=== PATIENT | female | born 1975 | race African-American/Black ===

== ENCOUNTER 2019-10-26 06:24 | Emergency (ER) | payer OTHER, SELFPAY ==
--- NOTE | ~2019-10-26 | MR_ITS ---
EXAMINATION: MR lumbar spine wo/w con DATE: 10/26/2019 11:58 INDICATION: Saddle anesthesia. Bilateral leg numbness. Multiple sclerosis. TECHNIQUE: Magnetic resonance imaging (MRI) of the lumbar spine was performed without and with 20 mL MultiHance intravenous contrast. Sequences included sagittal and axial T2-weighted FSE, sagittal T2-w eighted FS FSE, and sagittal and axial T1-weighted FSE. Postcontrast sequences included sagittal and axial T1-weighted FS FSE. COMPARISON: Cervical spine MRI 04/26/2012, thoracic spine MRI 06/20/2012 FINDINGS: Partially visualized are fibroids in uterus. Bone alignment is normal. Vertebral body heigh ts are normal. There is mildly decreased disc height at L3-L4 and moderately decreased disc height at L4-L5. The distal spinal cord signal intensity is normal. The conus medullaris is at L2. The followi ng disc levels are specifically discussed: L1-L2: The disc does not extend beyond the endplate margin. There is mild bilateral facet joint osteo arthritis. There is no neural foraminal stenosis. There is no central canal stenosis. L2-L3: The disc does not extend beyond the endplate margin. There is severe right and moderate left f acet joint osteoarthritis. There is mild right neural foraminal stenosis. There is no central canal s tenosis. L3-L4: The disc is bulging and has an annular fissure. There is severe bilateral facet joint osteoart hritis. There is mild bilateral neural foraminal stenosis. There is mild central canal stenosis. L4-L5: The disc is bulging and has an annular fissure. There is severe bilateral facet joint osteoart hritis. There is moderate bilateral neural foraminal stenosis. There is mild central canal stenosis. L5-S1: The disc is bulging and has an annular fissure. There is mild bilateral facet joint osteoarthr itis. There is mild right and moderate left neural foraminal stenosis. There is mild central canal st enosis. IMPRESSION: 1. Moderate lumbar spondylosis. Reviewed, dictated and finalized at location E.
--- NOTE | ~2019-10-26 | CT_ITS ---
EXAMINATION: CT brain wo con DATE: 10/26/2019 08:15 INDICATION: Leg weakness. Sagittal and a seizure. Multiple sclerosis. TECHNIQUE: Computed tomography (CT) of the head was performed without intravenous contrast. Sagittal and coronal reconstructions were performed. The mA was adjusted according to patient size. Iterative reconstruction technique was employed. The dose-length product was 605.33 mGy-cm. COMPARISON: None FINDINGS: No acute intracranial hemorrhage, acute infarction or abnormal extra axial fluid collection. There is mild scattered white matter hypoattenuation consistent with chronic small vessel ischemic disease. V entricles are normal and symmetric. No mass/mass effect. The orbits, paranasal sinuses and mastoid ai r cells are normal. IMPRESSION: 1. Mild scattered white matter hypoattenuation most likely related to provided history of multiple sc lerosis. No evident acute intracranial process. Reviewed, dictated and finalized at location A. IMPRESSION: 1. Mild scattered white matter hypoattenuation most likely related to provided history of multiple sclerosis. No evident acute intracranial process.
--- NOTE | ~2019-10-26 | XR_ITS ---
XR knee RT min 4V DATE: 10/26/2019 08:43 INDICATION: Knee pain TECHNIQUE: 6 views COMPARISON: None FINDINGS: There is elisa-articular spurring of the patella. There is prominent narrowing of the lateral compartment and elisa-articular spurring. There is minimal elisa-articular spurring of the medial tibial plateau. There is mild lateral subluxation of the femoral-tibial joint. No fracture or dislocation, periosteal reaction or bone destruction. No radiopaque intra-articular l oose body or chondrocalcinosis. Small suprapatellar knee joint effusion is suggested. IMPRESSION: Osteoarthritic changes Small suprapatellar knee joint effusion Reviewed, dictated and finalized at location A.
[2019-10-26 06:28] VITALS: BP 141/92; PULSE 89; RESP 18; TEMP 36.5; O2SAT 100
--- NOTE | 2019-10-26 07:45 | ED.GENADULT ---
HPI - General Adult General Chief complaint: Unspecified Stated complaint: allergic reaction Time Seen by Provider: 10/26/19 07:04 Source: RN notes reviewed History of Present Illness HPI narrative: Patient presents emergency department from home for numbness at the waist. Patient states symptoms began on 10/19/2019. Patient states that she has numbness in the genital region and cannot feel when she is wiping. She states that the numbness then improves and then begins again starting at just proximal to the ankles down to the feet with a burning sensation in the bilateral feet. She denies any fevers or chills abdominal pain nausea vomiting back pain or any other symptoms she denies any back injuries. Patient states she does have a history of multiple sclerosis and is not under any current treatment. She denies any weakness in the upper extremities patient denies any incontinence but states she cannot feel when she is using the restroom. She states she is able to walk but states she cannot feel the bottom of her feet Related Data Allergies Allergy/AdvReac Type Severity Reaction Status Date / Time kiwi Allergy Severe Other Verified 10/26/19 07:54 latex Allergy Mild RASH Verified 10/26/19 07:53 Review of Systems Review of Systems: Narrative: Gen.: Denies fevers or chills ENT: Denies congestion Respiratory: Denies shortness of breath or cough CV: Denies chest pain or palpitations GI: Denies abdominal pain nausea, emesis or diarrhea denies burning, urgency, frequency or hematuria Musculoskeletal: Denies back pain or muscle pain Neuro: See HPI Skin: Denies rash Except as documented, all other systems reviewed and negative [facility] Past Medical History Medical History (Updated 10/26/19 @ 13:12 by Eric Dodge DO) Multiple sclerosis Social History Social History (Updated 10/26/19 @ 07:47 by Eric Dodge DO) Smoking status: Never smoker Gender identity (if verbalized by the patient): Female Exam Narrative: Exam Narrative: APPEARANCE: No acute distress, nontoxic, resting in bed EYES: EOMI HEENT: Normocephalic, atraumatic, OMM RESPIRATORY: No respiratory distress Clear to auscultation bilaterally with no rhonchi wheezing or rales. CARDIOVASCULAR: Regular rate and rhythm without murmurs rubs or gallops. Bilateral dorsalis pedis pulse 2+ ABDOMINAL: Soft, nontender, nondistended, no rebound or guarding Rectal: Good rectal tone MUSCULOSKELETAl: Moves all extremities. No clubbing, cyanosis or edema. NEURO: Awake and alert x 3. Following commands, speech normal, saddle anesthesia present, pinprick sensation intact from the mid thigh down to just proximal of the ankle increased sensation from the ankle dorsally in the bilateral lower extremities SKIN:: Warm, dry. No rashes lesions or abrasions PSYCHIATRIC: Normal affect/mood, Course Course Emergency Course: Patient is able to get up and ambulate to the restroom without difficulty no assistance Patient also stating that she has had some chronic right knee pain for the past several months on exam the knee is nontender to palpation pain with flexion greater than 45 degrees obtain x-ray at this time Discussed with Dr. Mcbride presentation work-up. Discussed MRI results as well as CT results and history of MS. At this time he recommends patient be treated for UTI recommends no acute treatment for multiple sclerosis and states patient is follow-up with him in the office next week Discussed with patient results of workup and diagnosis. Discussed need for follow-up with primary care, proper use of medication, and reasons to return to the emergency department. Patient understands and agrees to current treatment plan Vital Signs Vital signs: Vital Signs Temperature 97.7 F 10/26/19 06:28 Pulse Rate 89 10/26/19 06:28 Respiratory Rate 18 10/26/19 06:28 Blood Pressure 141/92 H 10/26/19 06:28 Pulse Oximetry 100 10/26/19 06:28 Temperature 97.7 F 10/26/19 06:28
[2019-10-26 07:55] VITALS: O2SAT 99
[2019-10-26 08:37] LABS: Basophils Absolute Auto 0.1 K/mm3 (0.0-0.1); Basophils Percent Auto 0.7 % (0.2-1.2); Eosinophils Absolute Auto 0.1 K/mm3 (0-0.3); Eosinophils Percent Auto 1.8 % (0-4.4); Hematocrit 38.9 % (37.0-47.0); Hemoglobin 12.2 g/dL (12.0-15.0); Immature Granulocyte Absolute 0.02 K/mm3 (0.00-0.031); Immature Granulocyte Percent A 0.3 % (0-0.5); Lymphocytes Absolute Auto 1.88 K/mm3 (0.9-3.2); Lymphocytes Percent Auto 24.6 % (18.3-44.2); Mean Corpuscular HGB Conc 31.4 g/dl (32-36); Mean Corpuscular Hemoglobin 27.8 pg (26-34); Mean Corpuscular Volume 88.6 fl (80-100); Mean Platelet Volume 8.5 fl (7.4-10.4); Monocytes Absolute Auto 0.7 K/mm3 (0.1-0.6); Monocytes Percent Auto 9.4 % (2.6-8.5); Neutrophils Absolute Auto 4.8 K/mm3 (1.3-6.7); Neutrophils Percent Auto 63.2 % (45.5-73.1); Platelet Count Result 472 k/mm3 (150-375); Red Blood Count 4.39 M/mm3 (4.2-5.4); Red Cell Distribution Width 16.8 % (11.5-14.5); White Blood Count 7.6 K/mm3 (4.5-10.0)
[2019-10-26 08:42] LABS: Add Urine Microscopic? YES; Appearance Urine Cloudy (Clear); Bacteria Urine 1+ /hpf; Bilirubin Urine Negative (Negative); Color Urine Yellow (Yellow); Glucose Urine UA Negative (Negative); Ketones Urine Negative (Negative); Leukocyte Esterase Ur 2+ LEU/UL (Negative); Mucus Urine Few /lpf; Nitrate Urine Negative (Negative); Protein Urine 2+ mg/dL (Negative); Specific Grav Ur 1.018 (1.001-1.035); Squamous Epithelial Cell Urine Many /hpf (Few); Urobilinogen Urine Negative mg/dL (<2.0)
[2019-10-26 08:47] LABS: INR 0.9; Partial Thromboplastin Time 28.6 SECONDS (22.3-36.8)
[2019-10-26 08:48] LABS: Alanine Aminotransferase 11 U/L (4-35); Albumin Level 4.3 g/dL (3.5-5.1); Alkaline Phosphatase 80 U/L (38-126); Aspartate Amino Transferase 19 U/L (14-36); Bilirubin,Total 0.3 mg/dL (0.2-1.3); Blood Urea Nitrogen 4 mg/dL (7-17); Calcium 9.3 mg/dL (8.4-10.2); Carbon Dioxide 30 mmol/L (22-30); Chloride 104 mmol/L (98-107); Estimated Glomerular Filt Rate > 60; Glucose 93 mg/dL (65-105); Sodium 139 mmol/L (137-145)
[2019-10-26 08:50] LABS: Blood Urine Negative (Negative)
[2019-10-26 10:41] VITALS: BP 147/68; PULSE 83; RESP 16; O2SAT 100
[2019-10-26] MEDS: NITROFURANTOIN MONOHYD MACROCR 100 MG CAP PO (13:16)
[2019-10-26 13:24] VITALS: BP 140/69; PULSE 78; RESP 16; O2SAT 100
== END 2019-10-26 13:26 | disposition home or self-care (01) ==
PROVIDERS: Emergency Provider Emergency Medicine
DX: G35 Multiple sclerosis (principal); N39.0 Urinary tract infection, site not specified; R20.0 Anesthesia of skin
CPT/HCPCS: 36415; 70450; 72158; 73564; 80053; 81001; 85025; 85610; 85730; 87077; 87086; 87088; 87186; 99284; A9270; A9577

== ENCOUNTER 2021-07-17 13:57 | Outpatient (CLI) | payer OTHER, SELFPAY ==
--- NOTE | ~2021-07-17 | US_ITS ---
EXAMINATION: US pelvic complete EXAM DATE: 07/17/2021 14:13 INDICATION: Hypertrophy of uterus TECHNIQUE: Pelvic transabdominal sonogram was performed. There are multiple grayscale and Doppler i mages available for interpretation. There is no prior study for comparison. FINDINGS: Uterus measures 14.8 x 9.7 x 9.7 cm, with multiple fibroids, largest measuring 8 cm. Endom etrial stripe measures 6 mm, within normal limits. There is no free pelvic fluid. Right adnexa: The ovary is not identified. There is no adnexal mass. Left adnexa: The ovary is not identified. There is no adnexal mass. IMPRESSION: Fibroid uterus. Reviewed, dictated and finalized at location B. ETIC TECHNICIAN IMPRESSION: Fibroid uterus.
== END 2021-07-17 13:58 ==
LOC: MICIMG 13:58
PROVIDERS: PCP Nurse Practitioner Family; Visit Provider Nurse Practitioner
DX: N85.2 Hypertrophy of uterus (principal); D25.9 Leiomyoma of uterus, unspecified
CPT/HCPCS: 76856

== ENCOUNTER → 2021-07-31 02:31 | Outpatient (CLI) | payer OTHER, SELFPAY ==
[2021-07-31 14:34] LABS: SARS-CoV-2 RNA PCR Negative
== END ==
PROVIDERS: PCP Nurse Practitioner Family; Visit Provider Obstetrics & Gynecology Gynecology
DX: Z01.812 Encounter for preprocedural laboratory examination (principal); Z20.822 Contact with and (suspected) exposure to COVID-19
CPT/HCPCS: C9803; U0003; U0005

== ENCOUNTER 2021-07-31 09:45 | Outpatient (CLI) | payer OTHER, SELFPAY ==
[2021-07-31 10:38] LABS: Hematocrit 33.1 % (37.0-47.0); Hemoglobin 9.7 g/dL (12.0-15.0)
== END 2021-07-31 09:46 | disposition home or self-care (01) ==
PROVIDERS: Anesthesiology; PCP Nurse Practitioner Family; Visit Provider Obstetrics & Gynecology Gynecology
DX: D64.9 Anemia, unspecified (principal); Z01.818 Encounter for other preprocedural examination
CPT/HCPCS: 36415; 85014; 85018

== ENCOUNTER 2021-08-03 01:48 | Day surgery (SDC) | payer OTHER, SELFPAY ==
[2021-07-28 15:10] VITALS: BMI 41.3
--- NOTE | 2021-07-28 15:19 | PC.NURSE ---
Report to the Outpatient Waiting Room, entrance under the green pavilion located off [facility], at time 9:00 on date 08/03/21. OR Time: 11:00. - You and your visitor will be asked a series of questions to screen for COVID 19 for your protection. - A mask is required within the hospital. One visitor will be allowed to accompany the patient into the hospital. Patients visitor will be instructed to remain with patient at all times or leave the building. We will allow the visitor to come back to the postoperative area when patient is ready. Preoperative COVID Testing Requirements: COVID TEST 07/31 AT 9:40 No COVID Test needed if: (proof is required; if not received patient will have Rapid Test prior to entry) - Patient has received COVID Vaccine at least 14 days prior to procedure date or - Patient has positive COVID test result within last 90 days of surgery date. COVID Test needed if above criteria is not met If not COVID vaccinated a COVID test must be conducted within 72 hours of surgery and patient is asked to isolate self from time of testing until procedure. You will go to the [facility] for your COVID testing. The [facility] site is located at the corner of [address] [facility]. You will only be called if COVID results are positive and your surgeon may reschedule your elective surgery date. Patients may have clear liquids (water, carbonated beverages, clear teas, apple juice) until 3 hours prior to surgery (8:00) with a maximum of 20 ounces. - No food from midnight until time of surgery Take the following medications with a SIP of water the morning of surgery: NONE Medications to discontinue per physician: VITAMINS/SUPPLEMENTS Date to take last dose: 07/30/21 Please no make-up, nail finnish, hairspray, perfume, deodorant, or body powder the day of surgery. No jewelry (including any body piercings) or valuables the day of surgery, leave them at home. Please take a shower or bath the night before, or the morning of, surgery with an antibacterial soap. Wear comfortable, loose fitting clothing. - Jewelry must be removed prior to entering the operating room. Rings and piercings that are not removed may be cut off. - The hospital will not accept responsibility for valuables. - Please leave all valuables, including medications, at home the day of surgery. If you are going home after surgery, a licensed ross carrier driver must drive you home. - NO public transportation without another adult. - We recommend that an adult stay with you for 24 hours following discharge. - We also recommend that you do not drive, make important decision, drink alcoholic beverages, or take any drugs that were not prescribed by your health care provider for at least 24 hours after your discharge time. Follow any additional instructions given to you from your surgeon. Telephone instructions given to MIRANDA ARCE and asked if any additional questions and then verbalized understanding. Patient advised to call surgeon office or pre surgery nurse liaison [phone] if any additional questions.
[2021-08-03 07:15] VITALS: BP 137/94; PULSE 101; RESP 16; TEMP 36.8; O2SAT 99
[2021-08-03] MEDS: ACETAMINOPHEN 500 MG TABLET 1000 MG PO (07:37)
--- NOTE | 2021-08-03 07:38 | WPDHPUPDATE1 ---
History and Physical Update Update Date/Time: 08/03/21 07:38 History and Physical has been reviewed, including an updated exam of the patient. There are NO changes in the patient's condition. Risks, benefits, and alternatives have been discussed and questions answered. Patient agrees to proceed with procedure.
--- NOTE | 2021-08-03 07:38 | PM.HPGS ---
History of Present Illness History of Present Illness Consent: Risks, benefits, and alternatives have been discussed and questions answered. Patient agrees to proceed with procedure. Chief complaint: Menorrhagia, Fibroids Narrative: Josh Carrasco is a 45 year old female with the onset of approximately 6 months of heavy cycles lasting for 7 days with changing her pad and tampon approximately every 20minutes. Hemoglobin showed anemia at 9.7. Pelvic ultrasound reveals an enlarged uterus with multiple fibroids. Uterus measures 10.8x9.7x9.7 with at least 1 large 8cm fibroid however multiple smaller fibroids. It was recommended to proceed with D&C hysteroscopy and possible MyoSure. Risks of infection, bleeding, perforation, and fluid imbalance were reviewed. Patient voiced understanding and agrees to proceed. Possible pathology was also discussed. Review of Systems Review of Systems: not repeated day of surgery; patient states no changes in status PMFSH Past Medical History Medical History (Updated 08/03/21 @ 07:42 by Allison Lopez MD) Depression Multiple sclerosis (normal spontaneous vaginal delivery) X2 Osteoarthritis of right knee Surgical History Surgical History (Updated 08/03/21 @ 07:41 by Allison Lopez MD) H/O bilateral breast reduction surgery History of cholecystectomy Open fracture of ulna ORIF 2019 Status post tubal ligation Social History Social History Smoking status: Never smoker Alcohol intake: never Substance use: never Substance use type: does not use Living arrangements: with family Additional living arrangements comments: , 2 sons 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, 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 Gender identity (if verbalized by the patient): Female Spiritual care concerns: No Meds Home Medications and Allergies Home Medications Medication Instructions Recorded Confirmed Type ergocalciferol (vitamin D2) 1,250 mcg PO WEEKLY 07/28/21 08/03/21 History ferrous sulfate [Iron (ferrous 325 mg PO BID 07/28/21 08/03/21 History sulfate)] Allergies Allergy/AdvReac Type Severity Reaction Status Date / Time kiwi Allergy Severe Anaphylaxis Verified 08/03/21 07:26 latex Allergy Mild RASH Verified 08/03/21 07:26 Exam Const: General: healthy appearing and alert Orientation/consciousness: patient oriented x3 Resp: Effort & Inspection: normal respiratory effort Auscultation: clear to auscultation bilaterally Cardio: Rate: regular rate Rhythm: regular rhythm GI: GI Palp: Yes Soft to palpation, No Tenderness to palpation present (GI) and No Palpable mass present : External Female Exam: normal external appearance Speculum Exam - Vagina: normal appearance of the vagina and normal vaginal discharge Speculum Exam - Cervix: normal appearance of the cervix Bimanual exam- vagina & uterus: enlarged (Proximally 14 to 16 weeks and firm) Bimanual Exam- Adnexa, other: normal adnexae and No adnexal tenderness Neuro: General: patient oriented x3 Assessment and Plan Assessment and plan (1) Menorrhagia: Code(s): N92.0 - Excessive and frequent menstruation with regular cycle Status: Acute Assessment and Plan: Plan is to proceed with D&C hysteroscopy with possible MyoSure (2) Fibroids: Code(s): D21.9 - Benign neoplasm of connective and other soft tissue, unspecified Status: Acute
[2021-08-03] MEDS: LACTATED RINGERS 1,000 ML 30 ML IV CONT (07:47)
--- NOTE | 2021-08-03 07:52 | P.PNAN_ITS ---
Anes - Initial Pre Proc Eval Procedure: Operation Date: 08/03/21 09:00 Proposed Procedures p Hysteroscopy Dilation and Curettage, Possible Myosure - Allison Lopez MD Date/Time: 08/03/21 07:52 Surgeon: Allison Lopez MD Pre Op Diagnosis: Menorrhagia, Fibroids Patient Data Age: 45 Gender: F Height: 1.75 m Weight: 126.9 kg Last Vital Signs Temp 36.8 C 08/03/21 07:15 Pulse 101 H 08/03/21 07:15 Resp 16 08/03/21 07:15 BP 137/94 H 08/03/21 07:15 Pulse Ox 99 08/03/21 07:15 Allergies Allergy/AdvReac Type Severity Reaction Status Date / Time kiwi Allergy Severe Anaphylaxis Verified 08/03/21 07:26 latex Allergy Mild RASH Verified 08/03/21 07:26 Home Medications Medication Instructions Recorded Confirmed Type ergocalciferol (vitamin D2) 1,250 mcg PO WEEKLY 07/28/21 08/03/21 History ferrous sulfate [Iron (ferrous 325 mg PO BID 07/28/21 08/03/21 History sulfate)] Patient hx anesthesia problems: none and other (motion sickness) Family hx anesthesia problems: none Results Review: All pre-operative results and documents have been reviewed as part of the pre-operative evaluation. 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 Informed Consent: The patient's anesthetic plan and its attendant risks and benefits were discussed with the patient/family/POA. Questions were solicited and answers provided to the satisfaction of the patient/family/POA.
[2021-08-03] MEDS: SCOPOLAMINE 1.5 MG PATCH TRANSDERM (07:57)
--- NOTE | 2021-08-03 09:12 | SUR.OPER ---
FLUID DEFICIT OF APPROXIMATELY 1500ML NOTED. DR CARDENAS AWARE OF DEFICIT
--- NOTE | 2021-08-03 09:13 | W.PM.PROC2 ---
Procedure Note - Detailed Date of Procedure 08/03/21 Pre-op Diagnosis Menorrhagia, Fibroids Post-op Diagnosis same Procedure Performed D&C hysteroscopy Surgeon Allison Lopez MD Anesthesia MAC and local Findings Uterus sounds to 12cm. There was a very large blood clot in the cavity. Endometrium appears grossly normal. Description of Procedure The patient was taken to the operating room and placed under anesthesia in the dorsal lithotomy position. The patient is prepped and draped in usual sterile fashion. The bivalve speculum was placed in the vagina and the cervix grasped with a tenaculum. The cervix is injected in each quadrant with 1% lidocaine. The uterus is sounded to 12cm and noted to be anteverted and very deep set. The cervix is serially dilated with Hegar to an 8. The diagnostic hysteroscope was placed and there was very poor visualization due to large blood clot filling the cavity. The cavity was attempted to be flushed and suctioned and this was not successful. 1L of fluid was used with very minimal return at this point. The hysteroscope was removed and the polyp forceps are used to remove the blood clot in pieces. The hysteroscope was replaced and the cavity is able to be visualized. No abnormalities were noted and the hysteroscope was removed. At this point a 1500cc deficit was noted despite only looking with the hysteroscope. The hysteroscope was removed and the medium sharp curette used to curette the endometrium until a good uterine cry was noted in all areas. All instruments were removed and the patient was awakened from anesthesia and taken to recovery in stable condition. Sponge, needle, and instrument counts are correct per the OR staff. Estimated Blood Loss 25 Drains No Packing No Pathology yes (Endometrial curettings) Complications Other complications (Fluid imbalance) Condition stable Disposition PACU
[2021-08-03 09:19] VITALS: BP 128/91; PULSE 100; RESP 16; O2SAT 94
[2021-08-03 09:49] VITALS: BP 140/77; PULSE 90; RESP 16; O2SAT 100
[2021-08-03 10:07] LABS: Anion Gap 7 mmol/L (8-16); Blood Urea Nitrogen 11 mg/dL (7-17); Calcium 8.5 mg/dL (8.4-10.2); Carbon Dioxide 23 mmol/L (22-30); Chloride 109 mmol/L (98-107); Estimated CRCL calculation 144 ml/min; Estimated Glomerular Filt Rate > 60; Glucose 95 mg/dL (65-110); Potassium 4.4 mmol/L (3.4-5.0); Sodium 139 mmol/L (137-145)
[2021-08-03 10:19] VITALS: BP 135/76; PULSE 88; RESP 16
[2021-08-03 10:49] VITALS: BP 132/72; PULSE 85; RESP 16
== END 2021-08-03 11:00 | disposition home or self-care (01) ==
PROVIDERS: PCP Nurse Practitioner Family; Visit Provider Obstetrics & Gynecology Gynecology
PROC: 0U5B8ZZ Destruction of Endometrium, Via Natural or Artificial Opening Endoscopic (ICD-10-PCS; CPT 58563; principal; 2021-08-03 09:00)
DX: N92.0 Excessive and frequent menstruation with regular cycle (principal); N84.0 Polyp of corpus uteri; F32.9 Major depressive disorder, single episode, unspecified; G35 Multiple sclerosis; M17.11 Unilateral primary osteoarthritis, right knee; E66.01 Morbid (severe) obesity due to excess calories; Z68.41 Body mass index [BMI] 40.0-44.9, adult; D64.9 Anemia, unspecified
CPT/HCPCS: 58558; 36415; 80048; 85014; 85018; 88305; A9270; C9803; J2250; J2405; J2704; J3010; J7030; J7120; U0003; U0005

== ENCOUNTER → 2021-08-15 00:19 | Outpatient (CLI) | payer OTHER, MEDICAID, SELFPAY ==
[2021-08-15 13:15] LABS: SARS-CoV-2 RNA PCR Negative
== END ==
PROVIDERS: PCP Nurse Practitioner Family; Visit Provider Internal Medicine Gastroenterology
DX: Z01.812 Encounter for preprocedural laboratory examination (principal); Z20.822 Contact with and (suspected) exposure to COVID-19
CPT/HCPCS: C9803; U0003; U0005

== ENCOUNTER 2021-08-19 00:21 | Day surgery (SDC) | payer OTHER, MEDICAID, SELFPAY ==
[2021-08-10 14:41] VITALS: BMI 41.3
--- NOTE | 2021-08-18 17:20 | PM.HPGS ---
History of Present Illness History of Present Illness Consent: Risks, benefits, and alternatives have been discussed and questions answered. Patient agrees to proceed with procedure. Chief complaint: neoplasm screening Narrative: Josh Carrasco is a 45 year old female Referred for colon cancer screening Review of Systems Review of Systems: All systems reviewed & are unremarkable except as noted in HPI and below PMFSH Past Medical History Medical History Depression Multiple sclerosis (normal spontaneous vaginal delivery) X2 Osteoarthritis of right knee Surgical History Surgical History H/O bilateral breast reduction surgery History of cholecystectomy History of D&C Open fracture of ulna ORIF 2019 Status post tubal ligation Social History Social History Smoking status: Never smoker Alcohol intake: never Substance use: never Substance use type: does not use Living arrangements: with family Additional living arrangements comments: , 2 sons 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, 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 Gender identity (if verbalized by the patient): Female Spiritual care concerns: No Meds Home Medications and Allergies Home Medications Medication Instructions Recorded Confirmed Type ergocalciferol (vitamin D2) 1,250 mcg PO WEEKLY 07/28/21 08/19/21 History ferrous sulfate [Iron (ferrous 325 mg PO BID 07/28/21 08/19/21 History sulfate)] Allergies Allergy/AdvReac Type Severity Reaction Status Date / Time kiwi Allergy Severe Anaphylaxis Verified 08/19/21 06:25 latex Allergy Mild RASH Verified 08/19/21 06:25 cat dander Allergy Itching Verified 08/19/21 06:25 Exam Const: General: alert Orientation/consciousness: patient oriented x3 Resp: Auscultation: clear to auscultation bilaterally Cardio: Rhythm: regular rhythm GI: GI Palp: Yes Soft to palpation and No Tenderness to palpation present (GI) Neuro: General: patient oriented x3 Assessment and Plan Assessment and plan (1) Colon cancer screening: Code(s): Z12.11 - Encounter for screening for malignant neoplasm of colon Status: Acute Assessment and Plan: Colonoscopy with possible biopsy or polypectomy or cautery or injection of substances.
[2021-08-19 06:28] VITALS: BP 138/74; PULSE 75; RESP 18; TEMP 36.1; O2SAT 100
[2021-08-19] MEDS: LACTATED RINGERS 1,000 ML 150 ML IV CONT (06:50)
--- NOTE | 2021-08-19 06:53 | WPDANESEPPF ---
Anes - Initial Pre Proc Eval Procedure: Operation Date: 08/19/21 07:30 Proposed Procedures p Screening Colonoscopy - Byron Cardona MD Date/Time: 08/19/21 06:53 Surgeon: Byron Cardona MD Pre Op Diagnosis: neoplasm screening Patient Data Age: 45 Gender: F Height: 1.75 m Weight: 127.4 kg Last Vital Signs Temp 36.1 C L 08/19/21 06:28 Pulse 75 08/19/21 06:28 Resp 18 08/19/21 06:28 BP 138/74 08/19/21 06:28 Pulse Ox 100 08/19/21 06:28 Allergies Allergy/AdvReac Type Severity Reaction Status Date / Time kiwi Allergy Severe Anaphylaxis Verified 08/19/21 06:25 latex Allergy Mild RASH Verified 08/19/21 06:25 cat dander Allergy Itching Verified 08/19/21 06:25 Home Medications Medication Instructions Recorded Confirmed Type ergocalciferol (vitamin D2) 1,250 mcg PO WEEKLY 07/28/21 08/19/21 History ferrous sulfate [Iron (ferrous 325 mg PO BID 07/28/21 08/19/21 History sulfate)] Patient hx anesthesia problems: none Family hx anesthesia problems: none Results Review: All pre-operative results and documents have been reviewed as part of the pre-operative evaluation. [facility] Past Medical History Medical History Depression Multiple sclerosis (normal spontaneous vaginal delivery) X2 Osteoarthritis of right knee Surgical History Surgical History (Updated 08/19/21 @ 06:53 by Seymour Benavides MD) H/O bilateral breast reduction surgery History of cholecystectomy History of D&C Open fracture of ulna ORIF 2019 Status post tubal ligation Social History Social History Smoking status: Never smoker Alcohol intake: never Substance use: never Substance use type: does not use Living arrangements: with family Additional living arrangements comments: , 2 sons 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 Informed Consent: The patient's anesthetic plan and its attendant risks and benefits were discussed with the patient/family/POA. Questions were solicited and answers provided to the satisfaction of the patient/family/POA.
[2021-08-19 07:46] VITALS: BP 126/72; PULSE 89; RESP 22; O2SAT 100
[2021-08-19 07:56] VITALS: BP 139/75; PULSE 78; RESP 16; O2SAT 100
[2021-08-19 08:06] VITALS: BP 143/70; PULSE 80; RESP 25; O2SAT 100
== END 2021-08-19 08:22 | disposition home or self-care (01) ==
PROVIDERS: PCP Nurse Practitioner Family; Visit Provider Internal Medicine Gastroenterology
PROC: 0DJD8ZZ Inspection of Lower Intestinal Tract, Via Natural or Artificial Opening Endoscopic (ICD-10-PCS; CPT 45378; principal; 2021-08-19 07:30)
DX: Z12.11 Encounter for screening for malignant neoplasm of colon (principal); K62.1 Rectal polyp; G35 Multiple sclerosis; E66.01 Morbid (severe) obesity due to excess calories; Z68.41 Body mass index [BMI] 40.0-44.9, adult
CPT/HCPCS: 45380; 88305; C9803; J2704; J7120; U0003; U0005

== ENCOUNTER 2021-10-16 07:58 | Outpatient (CLI) | payer OTHER, SELFPAY ==
[2021-10-16 08:45] LABS: Hematocrit 37.1 % (37.0-47.0); Hemoglobin 11.3 g/dL (12.0-15.0)
== END 2021-10-16 07:59 | disposition home or self-care (01) ==
PROVIDERS: PCP Nurse Practitioner Family; Visit Provider Obstetrics & Gynecology Gynecology
DX: Z01.812 Encounter for preprocedural laboratory examination (principal); D64.9 Anemia, unspecified; N92.0 Excessive and frequent menstruation with regular cycle
CPT/HCPCS: 36415; 85014; 85018; 86850; 86900; 86901

== ENCOUNTER 2021-10-20 14:09 | Observation (INO) | payer OTHER, SELFPAY ==
[2021-10-14 13:27] VITALS: BMI 42.3
--- NOTE | 2021-10-14 13:33 | PC.NURSE ---
Report to the Outpatient Waiting Room, entrance under the green pavilion located off [facility], at time 0800____ on date _10/19/21____. OR Time: __999 . - You and your visitor will be asked a series of questions to screen for COVID 19 for your protection. - Only one visitor is allowed at this time. - The patient visitor is requested to leave or wait in car when not with patient. - A mask is required within the hospital. Patients may have clear liquids (water, carbonated beverages, clear teas, apple juice) until 3 hours prior to surgery with a maximum of 20 ounces. - No food from midnight until time of surgery - Infants may have breast milk until 4 hours before surgery, infant formula 6 hours prior to surgery. - Children will be allowed to drink immediately following surgery. If applicable, please bring a bottle or sippy cup to assist with drinking. Juice, water, soda, and popsicles are readily available. For infants on formula, please bring formula the day of surgery. Pacifiers are allowed. Take the following medications with a SIP of water the morning of surgery: NONE Medications to discontinue per physician IRON Date to take last dose 10/16/21 Please no make-up, nail welsh, hairspray, perfume, deodorant, or body powder the day of surgery. No jewelry (including any body piercings) or valuables the day of surgery, leave them at home. Please take a shower or bath the night before, or the morning of, surgery with an antibacterial soap. Wear comfortable, loose fitting clothing. Children are encouraged to wear pajamas. - Jewelry must be removed prior to entering the operating room. Rings and piercings that are not removed may be cut off. - The hospital will not accept responsibility for valuables. - Please leave all valuables, including medications, at home the day of surgery. If you are going home after surgery, a licensed regional driver must drive you home. - NO public transportation without another adult. - We recommend that an adult stay with you for 24 hours following discharge. - We also recommend that you do not drive, make important decision, drink alcoholic beverages, or take any drugs that were not prescribed by your health care provider for at least 24 hours after your discharge time. For Pediatric surgeries, we recommend two adults accompany the child home (only one inside the building at this time). Follow any additional instructions given to you from your surgeon. If you or anyone in your household have experienced Covid symptoms in the past week, please notify your surgeon or the nurse liaison at the phone number below for possible testing. Telephone instructions given to __PATIENTS and asked if any additional questions and then verbalized understanding. Patient advised to call surgeon office or pre surgery nurse liaison [phone] if any additional questions.
[2021-10-19] VITALS (19 sets, daily range): BP systolic 122–140; BP diastolic 60–80; PULSE 72–96; RESP 12–18; TEMP 36.2–37.5; O2SAT 93–100
--- NOTE | 2021-10-19 07:21 | WPDHPUPDATE1 ---
History and Physical Update Update Date/Time: 10/19/21 07:21 History and Physical has been reviewed, including an updated exam of the patient. There are NO changes in the patient's condition. Risks, benefits, and alternatives have been discussed and questions answered. Patient agrees to proceed with procedure.
--- NOTE | 2021-10-19 07:22 | PM.IMHP ---
H&P: HPI History of Present Illness Date/Time: 10/19/21 07:22 The patient is a 45-year-old 4 para 2 aborted 2 admitted for total abdominal hysterectomy bilateral salpingectomy. Patient has known fibroids and has been anemic with most recent hemoglobin of 9.9 as well as increasing pelvic pressure that is constant. Patient also states she has increased cramping throughout the month. Plan is to proceed with surgical treatment. Risks of infection, bleeding, injury to internal organs (especially bowel, bladder, and ureters), deep vein thrombosis, and general anesthesia. Possible pathology was also discussed. Postop recovery was discussed. Patient voices understanding and agrees to proceed. Patient has received medical clearance from her primary physician Chief Complaint: Symptomatic fibroid uterus Review of Systems Review of Systems: not repeated day of surgery; patient states no changes in status PMFSH Past Medical History Medical History Depression Multiple sclerosis (normal spontaneous vaginal delivery) X2 Osteoarthritis of right knee Surgical History Surgical History H/O bilateral breast reduction surgery History of cholecystectomy History of D&C Open fracture of ulna ORIF 2019 Status post tubal ligation Social History Social History Smoking status: Never smoker Alcohol intake: never Substance use: never Substance use type: does not use Living arrangements: with family Additional living arrangements comments: , 2 sons 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, 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 Gender identity (if verbalized by the patient): Female Spiritual care concerns: No Meds Home Medications and Allergies Home Medications Medication Instructions Recorded Confirmed Type ferrous sulfate [Iron (ferrous 325 mg PO BID 07/28/21 10/14/21 History sulfate)] Allergies Allergy/AdvReac Type Severity Reaction Status Date / Time kiwi Allergy Severe Anaphylaxis Verified 10/14/21 13:26 latex Allergy Mild RASH Verified 10/14/21 13:26 cat dander Allergy Itching Verified 10/14/21 13:26 Exam Const: General: healthy appearing and alert Orientation/consciousness: patient oriented x3 Resp: Effort & Inspection: normal respiratory effort Auscultation: clear to auscultation bilaterally Cardio: Rate: regular rate Rhythm: regular rhythm GI: GI Palp: Yes Soft to palpation, No Tenderness to palpation present (GI) and No Palpable mass present : External Female Exam: normal external appearance Speculum Exam - Vagina: normal appearance of the vagina and normal vaginal discharge Speculum Exam - Cervix: normal appearance of the cervix Bimanual exam- vagina & uterus: enlarged (Sixteen weeks by exam. Fourteen weeks with an 8cm fibroid by ultrasound) Bimanual Exam- Adnexa, other: normal adnexae and No adnexal tenderness Neuro: General: patient oriented x3 Assessment and Plan Assessment and plan (1) Fibroids: Code(s): D21.9 - Benign neoplasm of connective and other soft tissue, unspecified Status: Acute Assessment and Plan: Plan to proceed with total abdominal hysterectomy and bilateral salpingectomy. (2) Menorrhagia: Code(s): N92.0 - Excessive and frequent menstruation with regular cycle Status: Acute
[2021-10-19] MEDS: ACETAMINOPHEN 500 MG TABLET 1000 MG PO (08:31)
--- NOTE | 2021-10-19 09:02 | WPDANESEPPF ---
Anes - Initial Pre Proc Eval Procedure: Operation Date: 10/19/21 10:00 Proposed Procedures p Total Abdominal Hysterectomy with Bilateral Salpingectomy - Allison Lopez MD Date/Time: 10/19/21 09:02 Surgeon: Allison Lopez MD Pre Op Diagnosis: Fibroids Patient Data Age: 45 Gender: F Height: 1.75 m Weight: 130 kg Last Vital Signs Temp 37.1 C 10/19/21 08:55 Pulse 81 10/19/21 08:55 Resp 18 10/19/21 08:55 BP 128/65 10/19/21 08:55 Pulse Ox 94 10/19/21 08:55 Allergies Allergy/AdvReac Type Severity Reaction Status Date / Time kiwi Allergy Severe Anaphylaxis Verified 10/19/21 08:13 latex Allergy Mild RASH Verified 10/19/21 08:13 cat dander Allergy Itching Verified 10/19/21 08:13 Home Medications Medication Instructions Recorded Confirmed Type ferrous sulfate [Iron (ferrous 325 mg PO BID 07/28/21 10/19/21 History sulfate)] Laboratory Tests 10/19/21 08:45 Beta HCG, Quant Pending Patient hx anesthesia problems: none Family hx anesthesia problems: none Results Review: All pre-operative results and documents have been reviewed as part of the pre-operative evaluation. 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 Informed Consent: The patient's anesthetic plan and its attendant risks and benefits were discussed with the patient/family/POA. Questions were solicited and answers provided to the satisfaction of the patient/family/POA.
[2021-10-19] MEDS: KETOROLAC 15 MG/ML VIAL (*BKC) IV PUSH (09:09)
[2021-10-19] MEDS: LACTATED RINGERS 1,000 ML 30 ML IV CONT ×2 (09:09→12:20)
[2021-10-19 09:18] LABS: Beta HCG Quantitative < 2.39 mIU/ML
[2021-10-19] MEDS: ceFAZolin 3 GM/D5W 100 ML 100 ML IVPB (10:05)
--- NOTE | 2021-10-19 12:34 | W.PM.PROC2 ---
Procedure Note - Detailed Date of Procedure 10/19/21 Pre-op Diagnosis Menorrhagia with symptomatic Fibroids Post-op Diagnosis Same Procedure Performed Total abdominal hysterectomy bilateral salpingectomy Surgeon Allison Lopez MD Anesthesia General Findings Fundus is at 3 above the umbilicus. The uterus is quite large with multiple fibroids. Ovaries appeared normal. Tubes appeared normal. Description of Procedure The patient was taken to the operating room and placed under anesthesia in the dorsal supine position. She was prepped and draped in the usual sterile fashion. A vertical skin skin incision was made from the symphysis pubis to the umbilicus. The incision was carried down to the fascia which was nicked in the midline and extended superiorly and inferiorly with Adames scissors. Bleeding vessels in the subcutaneous tissue were cauterized. Ochsner was used to tent the fascia which was dissected off laterally. The peritoneum was tented and entered with Metzenbaum sent extended with blunt traction. The bowel was packed away and the [place] retractor placed. The uterus is grasped on the cornu with large peans and as the round ligaments were not visible the windows created in the posterior leaf of the broad ligament. The pedicle was doubly clamped transected and suture ligated with 0 Vicryl bilaterally. The round ligament on the right is grasped with the Z clamp x2 transected and suture ligated with 0 Vicryl. The anterior leaf of the broad ligament is incised down to the midline with difficulty. The identical procedure was performed on the left side. The uterus is then able to be mostly delivered through the incision. The peritoneum over the bladder flap meets in the midline and the bladder was dissected off using sharp and blunt dissection. The Isabelle retractor was placed to protect the bladder. The uterine vessels are clamped transected and suture ligated with 0 Vicryl. The cardinal and uterosacral ligaments were serially clamped transected and suture ligated with 0 Vicryl. The vaginal cuff was entered on the left during this process. The cuff was grasped with a long Allis the uterosacral ligaments were tagged for future use. The specimen was amputated using Lex since while grasping the vaginal cuff as the specimen was amputated. The defect is closed the vaginal cuff using 0 Vicryl in a running locked fashion with the same suture used to imbricate due to the high vascularity. Three additional [id number] sutures are required for hemostasis over the anterior portion the vaginal cuff for the bladder flap was dissected. Attention was then turned to the tubes where the right tube is grasped with a Huey crossclamped with a Z clamp and excised. The pedicles tied off using 0 Vicryl. Identical procedure was performed on the left side. Pelvis is irrigated noted to be hemostatic. Sponges and instruments are removed. Fascia was closed using 0 PDS in a running stitch except for the very base of the incision where 0 Vicryl was used for 3 sutures to close the base of the fascia. The fascia was noted to be intact by manual palpation. The subcutaneous tissues are irrigated and made hemostatic using Bovie cautery. Skin is closed using reyna. Sterile bandage was applied. Sponge, needle, and instrument counts are correct per the OR staff. Per anesthesia and the Evans has clear yellow urine and vitals remained stable throughout the case. Estimated Blood Loss 1,300 Urine Output -25.0 Drains Yes (Evans) Packing No Pathology Yes (Uterus and tubes) Complications No immediate complications Condition Stable Disposition PACU
--- NOTE | 2021-10-19 12:40 | PM.DS ---
DS: Admitting Diagnosis Discharge Date 10/21/21 Admitting Diagnosis Symptomatic fibroid uterus with anemia and menorrhagia DS: Discharge Diagnosis Discharge Diagnosis (1) Fibroids: Code(s): D21.9 - Benign neoplasm of connective and other soft tissue, unspecified Status: Acute (2) Menorrhagia: Code(s): N92.0 - Excessive and frequent menstruation with regular cycle Status: Acute (3) Status post total abdominal hysterectomy: Code(s): Z90.710 - Acquired absence of both cervix and uterus Status: Acute DS: Summary Hospital Course Reason for hospitalization: Postoperative care Hospital Course: At the time of discharge the patient is ambulating, voiding, and tolerating a regular diet. Status at Discharge Functional status at discharge: independent ambulation Overall status at discharge: patient is progressing back to baseline Time Spent with Patient Time attestation: Total time spent providing and/or coordinating discharge services: DS: Data Data Completed and Pending Pending studies at discharge: Pending at discharge 10/19/21 12:02 Surgical [PTH] Routine Labs on day of discharge: Labs from last 24 hours 10/19/21 08:45 Beta HCG, Quant < 2.39 Discharge Plan Discharge Attending physician on discharge: Allison Lopez Discharging Clinician: Jaye Herman Anticipated Discharge Date/Time: 10/21/21 07:44 Patient Disposition: Home, Self-Care Activity: may shower, no straining, no driving and pelvic rest Diet: as tolerated and regular Wound Care Instructions: follow printed instructions and incision open to air Patient Instructions: Hysterectomy (DC), Pain Management After Surgery (DC) Stand Alone Forms: General Discharge Instructions Follow-up/Referrals: Allison Lopez MD [Physician] - (Post op day 10 for staple removal. ) Discharge Medications: New hydrocodone-acetaminophen 5-325 mg Tablet 1 tablet PO Q4H PRN (Reason: Pain Rated 5 Or Less) Qty: 30 RF: 0 Continued ferrous sulfate [Iron (ferrous sulfate)] 325 mg (65 mg iron) Tablet 325 mg PO BID RF: 0 Date of admission: 10/20/21 14:09 Primary Care Provider: Emelina,Maria Isabel Sullivan Admitting Provider: Allison Lopez Attending physician on admission: Allison Lopez Condition: Stable
[2021-10-19] MEDS: fentaNYL CITRATE INJ (*CRX) 100 MCG/2 ML VIAL 25 MCG IV PUSH ×4 (12:52→13:41)
[2021-10-19] MEDS: ONDANSETRON INJ 4 MG/2 ML VIAL IV PUSH ×2 (13:12→23:07)
[2021-10-19] MEDS: SCOPOLAMINE 1.5 MG PATCH TRANSDERM (13:30)
[2021-10-19] MEDS: DEXTROSE 5%/LACTATED RINGERS 1,000 ML 125 ML IV CONT ×2 (14:30→23:02)
--- NOTE | 2021-10-19 14:39 | OBPPTRN ---
1208 Patient transferred to post room #292 via stretcher. Oriented to unit, room, information board, admission packet and security measures. Patient verbalizes understanding.
[2021-10-19] MEDS: FENTANYL 600MCG/NS30MLPCA(*CRX 600 MCG/30 ML PCA.VIAL IV CONT (15:19)
[2021-10-19] MEDS: KETOROLAC 30 MG/ML VIAL (*BKC) IV PUSH (23:05)
[2021-10-20] VITALS: RESP 16; O2SAT 100
[2021-10-20 01:00] VITALS: RESP 17; O2SAT 96
[2021-10-20 02:00] VITALS: RESP 16; O2SAT 97
[2021-10-20] MEDS: FENTANYL 600MCG/NS30MLPCA(*CRX 600 MCG/30 ML PCA.VIAL IV CONT ×2 (02:00)
--- NOTE | 2021-10-20 02:28 | PC.NURSE ---
Cleared TOPOGRAPHICAL DRAFTER pump at end of this RN's shift. Witnessed by Hilton Renteria RN. 223mcg at 2230
[2021-10-20] MEDS: HYDROcodone/acetaminophen (*CRX) 10-325 MG TABLET 1 TAB PO (03:12)
[2021-10-20 04:30] VITALS: BP 124/51; PULSE 85; RESP 16; TEMP 36.8; O2SAT 98
[2021-10-20 05:00] LABS: Basophils Percent Auto 0.1 % (0.2-1.2); Hematocrit 27.1 % (37.0-47.0); Hemoglobin 8.2 g/dL (12.0-15.0); Immature Granulocyte Absolute 0.05 K/mm3 (0.00-0.031); Immature Granulocyte Percent A 0.4 % (0-0.5); Mean Corpuscular HGB Conc 30.3 g/dl (32-36); Mean Corpuscular Hemoglobin 26.8 pg (26-34); Mean Corpuscular Volume 88.6 fl (80-100); Mean Platelet Volume 8.8 fl (7.4-10.4); Monocytes Absolute Auto 1.8 K/mm3 (0.1-0.6); Monocytes Percent Auto 13.3 % (2.6-8.5); Neutrophils Absolute Auto 10.7 K/mm3 (1.3-6.7); Neutrophils Percent Auto 78.2 % (45.5-73.1); Platelet Count Result 364 k/mm3 (150-375); Red Blood Count 3.06 M/mm3 (4.2-5.4); White Blood Count 13.7 K/mm3 (4.5-10.0)
--- NOTE | 2021-10-20 07:49 | PM.GYNPNOP ---
CODING TECH - A/P Postoperative Procedures: Procedures Operation Date: 10/19/21 10:00 Actual Procedure Side Surgeon p Total Abdominal Hysterectomy with Bilateral Salpingectomy Bilateral Allison Lopez MD Postoperative day: 1 Postoperative status: doing well Postoperative plan: routine post-op care Time Spent With Patient Time: Total time spent is greater than 50% in coordination of care (as documented) at patient's floor/unit and/or counseling patient: Time with patient: less than 15 minutes CODING TECH- PN:Subj Post-Op Subjective Date/time seen: 10/20/21 07:49 Subjective: patient reports feeling better, patient has no complaints and pain is well controlled Exam Narrative: inc c/d/i abdomen soft, nt CODING TECH - PN: Obj Data Vital Signs Vital Signs: Vital Signs - 24 hr 10/19/21 08:55 10/19/21 12:08 10/19/21 12:20 Temperature 98.7 F 97.8 F 97.2 F L Pulse Rate 81 80 90 Respiratory Rate 18 14 14 Blood Pressure 128/65 126/70 134/76 Pulse Oximetry 94 95 99 10/19/21 12:35 10/19/21 12:50 10/19/21 13:05 Temperature Pulse Rate 88 81 84 Respiratory Rate 18 14 16 Blood Pressure 137/69 126/61 135/63 Pulse Oximetry 100 100 100 10/19/21 13:20 10/19/21 13:35 10/19/21 13:50 Temperature 97.8 F Pulse Rate 78 72 80 Respiratory Rate 18 12 14 Blood Pressure 136/67 125/67 126/70 Pulse Oximetry 93 94 95 10/19/21 15:19 10/19/21 16:19 10/19/21 16:20 Temperature 98.6 F Pulse Rate 95 Respiratory Rate 18 16 18 Blood Pressure 129/80 Pulse Oximetry 95 96 97 10/19/21 17:25 10/19/21 18:30 10/19/21 19:30 Temperature Pulse Rate Respiratory Rate 18 16 16 Blood Pressure Pulse Oximetry 97 95 94 10/19/21 20:30 10/19/21 21:30 10/19/21 22:30 Temperature 99.5 F Pulse Rate 96 Respiratory Rate 18 18 18 Blood Pressure 130/77 Pulse Oximetry 97 95 97 10/19/21 23:00 10/20/21 00:00 10/20/21 01:00 Temperature 98.5 F Pulse Rate 94 Respiratory Rate 16 16 17 Blood Pressure 140/72 Pulse Oximetry 96 100 96 10/20/21 02:00 10/20/21 04:30 Temperature 98.2 F Pulse Rate 85 Respiratory Rate 16 16 Blood Pressure 124/51 L Pulse Oximetry 97 98 Intake/Output Intake/Output: Intake & Output 10/17/21 10/18/21 10/19/21 10/20/21 23:59 23:59 23:59 23:59 Intake Total 2340.0 578 Output Total 705 725 Balance 1635.0 -147 Meds/Results Medications: Active Medications Generic Name Dose Route Start Last Admin Trade Name Freq PRN Reason Stop Dose Admin Hydrocodone Bitart/Acetaminophen 1 tab 10/19/21 13:59 Hydrocodone/Acetaminophen (*Crx) 5-325 Mg Tablet PO Q3H PRN Pain Rated 5 or Less Hydrocodone Bitart/Acetaminophen 1 tab 10/19/21 13:59 10/20/21 03:12 Hydrocodone/Acetaminophen (*Crx) 10-325 Mg Tablet PO 1 tab Q3H PRN Administration Pain Rated 6 or Greater Ferrous Sulfate 324 mg 10/19/21 17:00 10/20/21 06:46 Ferrous Sulfate 324 Mg Tablet PO Not Given BID ANEL Dextrose/Lactated Ringer's 1,000 mls @ 125 mls/hr 10/19/21 13:59 10/19/21 23:02 Dextrose 5%/Lactated Ringers IV CONT 125 mls/hr .Q8H ANEL Administration Ibuprofen 600 mg 10/19/21 13:59 Ibuprofen 600 Mg Tablet PO Q6H PRN Cramping Ketorolac Tromethamine 30 mg 10/19/21 13:59 10/19/21 23:05 Ketorolac 30 Mg/Ml Vial (*Bkc) IV PUSH 10/24/21 13:58 30 mg Q6H PRN Administration Pain Rated 4-6 Ondansetron HCl 4 mg 10/19/21 13:59 10/19/21 23:07 Ondansetron Inj 4 Mg/2 Ml Vial IV PUSH 4 mg Q6H PRN Administration Nausea Simethicone 80 mg 10/19/21 13:59 Simethicone 80 Mg Tab.Chew PO Q2H PRN Gas Labs CBC & Chem 7: 10/20/21 04:32 Labs: Laboratory Results - last 24 hr 10/19/21 10/20/21 08:45 04:32 WBC 13.7 H RBC 3.06 L Hgb 8.2 L D Hct 27.1 L MCV 88.6 MCH 26.8 MCHC 30.3 L RDW 25.0 H Plt Count 364 MPV 8.8 Immature Gran % (Auto) 0.4 Neut % (Auto) 78.2 H Lymph % (Auto
[2021-10-20 08:10] VITALS: BP 125/61; PULSE 72; RESP 18; TEMP 37.6; O2SAT 97
--- NOTE | 2021-10-20 09:20 | WPDANESPN ---
Anes - Prog Note Post-Op Date/Time: 10/20/21 09:20 Cardiovascular status: normal Respiratory status: normal Airway patency: baseline Mental status: baseline Post-Op hydration status: normal Vital Signs: Last Vital Signs Temp 98.2 F 10/20/21 04:30 Pulse 85 10/20/21 04:30 Resp 16 10/20/21 04:30 BP 124/51 L 10/20/21 04:30 Pulse Ox 98 10/20/21 04:30 Pain Score (VAS): 0 I/O: Intake & Output 10/19/21 10/20/21 10/20/21 23:59 07:59 15:59 Intake Total 1440.0 578 Output Total 625 1225 Balance 815.0 -647 Laboratory Tests 10/20/21 04:32 10/20/21 04:32 WBC 13.7 H RBC 3.06 L Hgb 8.2 L D Hct 27.1 L MCV 88.6 MCH 26.8 MCHC 30.3 L RDW 25.0 H Plt Count 364 MPV 8.8 Immature Gran % (Auto) 0.4 Neut % (Auto) 78.2 H Lymph % (Auto) 8.0 L [place] % (Auto) 13.3 H Eos % (Auto) 0.0 Baso % (Auto) 0.1 L Lymph # (Auto) 1.10 [place] # (Auto) 1.8 H Eos # (Auto) 0.0 Baso # (Auto) 0.0 Abs Immat Gran (auto) 0.05 H Absolute Neuts (auto) 10.7 H Absolute Nucleated RBC 0.0 Nucleated RBC % 0.0 Post-procedural complaints: none Patient Feedback: Patient satisfied with anesthetic care.
[2021-10-20] MEDS: IBUPROFEN 600 MG TABLET PO ×2 (10:01→16:06)
[2021-10-20] MEDS: FERROUS SULFATE 324 MG TABLET PO ×2 (10:01→16:06)
[2021-10-20] MEDS: HYDROcodone/acetaminophen (*CRX) 5-325 MG TABLET 1 TAB PO ×3 (10:02→21:48)
[2021-10-20] MEDS: ONDANSETRON INJ 4 MG/2 ML VIAL IV PUSH (10:05)
[2021-10-20 15:45] VITALS: BP 112/48; PULSE 81; RESP 16; TEMP 36.8; O2SAT 98
[2021-10-21] MEDS: IBUPROFEN 600 MG TABLET PO ×2 (00:23→08:13)
[2021-10-21 04:45] VITALS: BP 108/46; PULSE 67; PULSE 99; RESP 16; TEMP 37.1; O2SAT 99
--- NOTE | 2021-10-21 07:36 | PM.GYNPNOP ---
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 Postoperative Procedures: Procedures Operation Date: 10/19/21 10:00 Actual Procedure Side Surgeon p Total Abdominal Hysterectomy with Bilateral Salpingectomy Bilateral Allison Lopez MD Time Spent With Patient Time: Total time spent is greater than 50% in coordination of care (as documented) at patient's floor/unit and/or counseling patient: Time with patient: less than 15 minutes BUTTONHOLE MACHINE OPERATOR- PN:Subj Post-Op Subjective Date/time seen: 10/21/21 07:05 Review of Systems Review of Systems: All systems reviewed & are unremarkable except as noted in HPI and below Exam Const: General: comfortable Other: Resting in bed. Repositions self without difficulty. Resp: Auscultation: clear to auscultation bilaterally Cardio: Rate: regular rate GI: GI Palp: Yes Soft to palpation Auscultation: normal bowel sounds Neuro: General: oriented to person, oriented to place and oriented to time Extrem: General: normal to inspection and full ROM Psych: Mental Status: mental status grossly normal BUTTONHOLE MACHINE OPERATOR - PN: Obj Data Vital Signs Vital Signs: Vital Signs - 24 hr 10/20/21 08:10 10/20/21 15:45 10/21/21 04:45 Temperature 99.7 F H 98.3 F 98.7 F Pulse Rate 72 81 67 Respiratory Rate 18 16 16 Blood Pressure 125/61 112/48 L 108/46 L Pulse Oximetry 97 98 99 Intake/Output Intake/Output: Intake & Output 10/18/21 10/19/21 10/20/21 10/21/21 23:59 23:59 23:59 23:59 Intake Total 2340.0 938 Output Total 705 1825 Balance 1635.0 -887 Meds/Results Medications: Active Medications Generic Name Dose Route Start Last Admin Trade Name Freq PRN Reason Stop Dose Admin Hydrocodone Bitart/Acetaminophen 1 tab 10/19/21 13:59 10/20/21 21:48 Hydrocodone/Acetaminophen (*Crx) 5-325 Mg Tablet PO 1 tab Q3H PRN Administration Pain Rated 5 or Less Hydrocodone Bitart/Acetaminophen 1 tab 10/19/21 13:59 10/20/21 03:12 Hydrocodone/Acetaminophen (*Crx) 10-325 Mg Tablet PO 1 tab Q3H PRN Administration Pain Rated 6 or Greater Ferrous Sulfate 324 mg 10/19/21 17:00 10/20/21 16:06 Ferrous Sulfate 324 Mg Tablet PO 324 mg BID ANEL Administration Ibuprofen 600 mg 10/19/21 13:59 10/21/21 00:23 Ibuprofen 600 Mg Tablet PO 600 mg Q6H PRN Administration Cramping Ketorolac Tromethamine 30 mg 10/19/21 13:59 10/19/21 23:05 Ketorolac 30 Mg/Ml Vial (*Bkc) IV PUSH 10/24/21 13:58 30 mg Q6H PRN Administration Pain Rated 4-6 Ondansetron HCl 4 mg 10/19/21 13:59 10/20/21 10:05 Ondansetron Inj 4 Mg/2 Ml Vial IV PUSH 4 mg Q6H PRN Administration Nausea Simethicone 80 mg 10/19/21 13:59 Simethicone 80 Mg Tab.Chew PO Q2H PRN Gas Labs CBC & Chem 7: 10/20/21 04:32
--- NOTE | 2021-10-21 07:39 | PM.DS ---
DS: Admitting Diagnosis Discharge Date 10/21/21 Admitting Diagnosis Symptomatic fibroid uterus with anemia and menorrhagia. S/P Total abdominal hysterectomy with bilateral salpingectomy. DS: Discharge Diagnosis Discharge Diagnosis (1) Status post total abdominal hysterectomy: Code(s): Z90.710 - Acquired absence of both cervix and uterus Status: Acute (2) Fibroids: Code(s): D21.9 - Benign neoplasm of connective and other soft tissue, unspecified Status: Acute (3) Menorrhagia: Code(s): N92.0 - Excessive and frequent menstruation with regular cycle Status: Acute DS: Summary Hospital Course Hospital Course: Uncomplicated. Time Spent with Patient Time attestation: Total time spent providing and/or coordinating discharge services: Exam Narrative: Having minimal pain. Vertical skin incision CDI with reyna. Repositioning self and ambulating without difficulty. Denies vaginal bleeding or dizziness. Const: General: no acute distress Limitations: no limitations Resp: Auscultation: clear to auscultation bilaterally Cardio: Rate: regular rate GI: GI Palp: Yes Soft to palpation Auscultation: normal bowel sounds Skin: General skin exam: normal color Wounds: wounds noted incision lower abdomen margins well approximated, without odor and reyna in place Extrem: General: normal to inspection Psych: Mental Status: mental status grossly normal DS: Data Data Completed and Pending Completed studies during hospitalization: Pending at discharge 10/19/21 12:02 Surgical [PTH] Routine Discharge Plan Discharge Attending physician on discharge: Allison Lopez Discharging Clinician: Jaye Herman Anticipated Discharge Date/Time: 10/21/21 07:44 Patient Disposition: Home, Self-Care Activity: may shower, no straining, no driving and pelvic rest Diet: as tolerated and regular Wound Care Instructions: follow printed instructions and incision open to air Stand Alone Forms: General Discharge Instructions Follow-up/Referrals: Allison Lopez MD [Physician] - (Post op day 10 for staple removal. ) Discharge Medications: New hydrocodone-acetaminophen 5-325 mg Tablet 1 tablet PO Q4H PRN (Reason: Pain Rated 5 Or Less) Qty: 30 RF: 0 Continued ferrous sulfate [Iron (ferrous sulfate)] 325 mg (65 mg iron) Tablet 325 mg PO BID RF: 0 Date of admission: 10/20/21 14:09 Primary Care Provider: Emelina,Maria Isabel Sullivan Admitting Provider: Allison Lopez Attending physician on admission: Allison Lopez Condition: Stable
--- NOTE | 2021-10-21 08:00 | PC.NURSE ---
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 PT sole recipient of such instructions and no barriers to learning identified at this time. PT received such instructions this shift via discussion and demonstrations. PT verbalized understanding of such care.
[2021-10-21] MEDS: SIMETHICONE 80 MG TAB.CHEW PO (08:13)
[2021-10-21] MEDS: FERROUS SULFATE 324 MG TABLET PO (08:14)
[2021-10-21] MEDS: HYDROcodone/acetaminophen (*CRX) 5-325 MG TABLET 1 TAB PO (08:14)
[2021-10-21 08:15] VITALS: PULSE 67; RESP 16; O2SAT 99
[2021-10-21 08:25] VITALS: BP 121/41; PULSE 71; RESP 18; TEMP 36.9; O2SAT 100
--- NOTE | 2021-10-21 11:00 | PC.NURSE ---
PT received instructions post electrical tests supervisor surgery protocol and pt verbalized understanding of such care.
--- NOTE | 2021-10-21 11:24 | PC.NURSE ---
PT discharged to home via wheelchair accompanied by spouse to waiting car. follow up appts confirmed
[2021-10-21] MEDS: HYDROcodone/acetaminophen (*CRX) 10-325 MG TABLET 1 TAB PO (12:02)
== END 2021-10-21 11:24 | disposition home or self-care (01) ==
LOC: ANHSURGERY 14:37 → ANHOB2 14:37
PROVIDERS: Anesthesiology; Admitting Provider Obstetrics & Gynecology Gynecology; PCP Nurse Practitioner Family; Visit Provider Obstetrics & Gynecology Gynecology
PROC: 0UT94ZZ Resection of Uterus, Percutaneous Endoscopic Approach (ICD-10-PCS; CPT 58150; principal; 2021-10-19 10:00)
DX: N92.0 Excessive and frequent menstruation with regular cycle (principal); D25.1 Intramural leiomyoma of uterus; D25.0 Submucous leiomyoma of uterus; D25.2 Subserosal leiomyoma of uterus; D64.9 Anemia, unspecified
CPT/HCPCS: 58150; 36415; 84702; 85025; 88307; 99199; A9270; G0378; G0379; J0690; J1100; J1170; J1885; J2250; J2405; J2704; J2710; J3010; J7030; J7120; J7121

== ENCOUNTER 2024-03-29 22:58 | Emergency (ER) | payer OTHER, SELFPAY ==
--- NOTE | ~2024-03-29 | CT_ITS ---
EXAMINATION: CT abdomen pelvis wo con DATE: 03/30/2024 00:14 INDICATION: Low abdominal pain. Hematuria. Nephrolithiasis. TECHNIQUE: Computed tomography (CT) of the abdomen and pelvis was performed without intravenous contr ast. Automated exposure control and iterative reconstruction technique were employed. The dose-length product was 1504.97 mGy-cm. COMPARISON: None. FINDINGS: The visualized portions of lung bases demonstrate minimal atelectasis. No pleural effusion. The heart size is normal. No pericardial effusion. There is a small sliding hiatal hernia. There is an 8 mm cyst in the liver. There are changes of cholecystectomy. The spleen, pancreas, and adrenal gl ands are normal. There is a 2 mm stone in right kidney. There is a 5 mm mass of fat in left kidney, c onsistent with an angiomyolipoma. There are no dilated loops of bowel. The appendix is normal. There are no pathologically enlarged lymph nodes. There is no free intraperitoneal fluid. There is a suprau mbilical ventral hernia containing fat. There is an umbilical hernia containing fat. There is severe lumbar spondylosis. IMPRESSION: 1. 2 mm nonobstructing right kidney stone. 2. Ventral hernias containing fat. 3. Small sliding hiatal hernia. Reviewed, dictated and finalized at location A.
[2024-03-29 23:00] VITALS: BP 151/92; PULSE 82; RESP 17; TEMP 36.7; O2SAT 100
[2024-03-29 23:39] LABS: BEDSIDEPREGUCG Negative (Negative)
[2024-03-29 23:48] LABS: Add Urine Microscopic? YES; Appearance Urine Cloudy (Clear); Bacteria Urine 1+ /hpf; Bilirubin Urine Negative (Negative); Blood Urine 2+ (Negative); Color Urine Yellow (Yellow); Glucose Urine UA Negative (Negative); Ketones Urine Negative (Negative); Leukocyte Esterase Ur 2+ LEU/UL (Negative); Nitrate Urine Negative (Negative); Non Pathogenic Casts 0-2; Protein Urine Trace mg/dL (Negative); Specific Grav Ur 1.011 (1.001-1.035); Squamous Epithelial Cell Urine Moderate /hpf (Few); Urobilinogen Urine 0.2 mg/dL (<2.0); WBC Urine 51-100 /hpf (0-3); pH Urine 7.5 (5.0-9.0)
[2024-03-29 23:49] VITALS: BP 158/84; PULSE 78; RESP 15; O2SAT 98
--- NOTE | 2024-03-29 23:56 | ED_ITS ---
HPI - Abdominal Pain General Chief Complaint: Abdominal Pain Stated Complaint: abd pain and blood in urine Time Seen by Provider: 03/29/24 23:23 History of Present Illness HPI narrative: 48-year-old female history of MS, s/p cholecystectomy presents to the emergency department for lower abdominal pain, dysuria, hematuria, urinary frequency and back pain for approximately 1-2 days. Patient states she has noticed some pain to the right lower quadrant and suprapubic region. She states the pain her back is diffusely throughout the lower back. She denies injury or trauma, saddle anesthesia, bowel or bladder incontinence or retention. denies history of kidney stones. Related Data Home Medications Medication Instructions Recorded Confirmed ferrous sulfate 325 mg (65 mg 325 mg PO BID 07/28/21 09/22/23 iron) tablet (Iron (ferrous sulfate)) Allergies Allergy/AdvReac Type Severity Reaction Status Date / Time kiwi Allergy Severe Anaphylaxis Verified 03/29/24 22:59 latex Allergy Mild RASH Verified 03/29/24 22:59 cat dander Allergy Itching Verified 03/29/24 22:59 Review of Systems Review of Systems: All systems reviewed & are unremarkable except as noted in HPI and below PMFSH Past Medical History Medical History BMI greater than 40 Colon cancer screening Degenerative joint disease of knee Depression Fibroids Left knee DJD Multiple sclerosis (normal spontaneous vaginal delivery) X2 Osteoarthritis of right knee Surgical History Surgical History H/O bilateral breast reduction surgery History of cholecystectomy History of D&C Open fracture of ulna ORIF 2019 Status post total abdominal hysterectomy And bilateral salpingectomy Status post tubal ligation Social History Social History Smoking status: Never smoker Alcohol intake: never Substance use: never Substance use type: does not use Living arrangements: with family Additional living arrangements comments: , 2 sons Occupation/Education: occupation 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 HEAD: Normocephalic, atraumatic. EYES: PERRLA and EOMI. ENT: Nares clear, no rhinorrhea or epistaxis. Mucous membranes moist. NECK: Supple. CHEST: Clear to auscultation. No respiratory distress. HEART: Regular rate and rhythm. No murmur heard. Normal peripheral pulses. ABDOMEN: Normoactive bowel sounds. Abdomen soft with suprapubic and right lower quadrant tenderness. No rebound or rigidity. No specific CVA tenderness. BACK: no midline thoracolumbar spinous tenderness, step-offs or deformities. Diffuse tenderness to the bilateral paraspinous muscles and low back. No saddle anesthesia. Strength 5/5 to BLE EXTREMITIES: Normal range of motion. No edema. SKIN: Warm, dry, no rash. NEURO: No focal deficits. Alert and oriented x3 Course Vital Signs Vital signs: Vital Signs Temperature 98.0 F 03/29/24 23:00 Pulse Rate 82 03/29/24 23:00 Respiratory Rate 17 03/29/24 23:00 Blood Pressure 151/92 H 03/29/24 23:00 Pulse Oximetry 100 03/29/24 23:00 Temperature 98.0 F 03/29/24 23:00 Pulse Rate 78 03/29/24 23:49 Respiratory Rate 15 03/29/24 23:49 Blood Pressure 158/84 H 03/29/24 23:49 Pulse Oximetry 98 03/29/24 23:49 MDM - Abdominal Pain MDM Narrative Medical decision making narrative: 40-year-old female presents to the emergency department for lower abdominal pain, diffuse back pain, hematuria, dysuria urinary frequency for 1-2 days. Triage vitals with hypertension of 150/92, otherwise unremarkable. She is afebrile nontoxic appearing. Exam is significant for the above. CBC was significant for mild leukocytosis of 10.8. Chemistries are unremarkable, creatinine normal at 0.5. Urinalysis with 51-100 wbc's and 6-10 RBCs, 2+ leuk esterase 1+ bacteria concerning for UTI. Concern for possible ureteral lithiasis, therefore CT abdomen pelvis without contrast obtained. Lipase also mildly elevated at 751. LFTs are unremarkable. CT abdomen pelvis reveals no ureteral stone. There is the incidental finding of a subcentimeter hypodensity in the right hepatic lobe and fat containing supraumbilical and umbilical hernias workup discussed with the patient. She received morphine and Zofran with improvement in symptoms. Her presentation is consistent with pyelonephritis. She was started on ciprofloxacin. I discussed the incidental findings. She is requesting a follow-up with a surgeon regarding hernias and states they are bothersome to her. Advised also follow-up with her PCP regarding hepatic lesion. Encouraged Tylenol ibuprofen as needed for pain. Strict ED return precautions discussed. She is agreeable to plan verbalized understanding. Di scharged in stable condition. Lab Data 03/29/24 23:51 03/29/24 23:51 Labs: Lab Results 03/29/24 03/29/24 03/29/24 Range/Units 23:37 23:50 23:51 WBC 10.8 H (4.5-10.0) K/mm3 RBC 3.94 L (4.2-5.4) M/mm3 Hgb 13.3 D (12.0-15.0) g/dL Hct 39.9 (37.0-47.0) % MCV 101.3 H (80-100) fl MCH 33.8 (26-34) pg MCHC 33.3 (32-36) g/dl RDW 13.5 (11.5-14.5) % Plt Count 399 H (150-375) k/mm3 MPV 8.7 (7.4-10.4) fl Immature Gran % (Auto) 0.3 (0-0.5) % Neut % (Auto) 76.2 H (45.5-73.1) % Lymph % (Auto) 15.0 L (18.3-44.2) % [place] % (Auto) 7.3 (2.6-8.5) % Eos % (Auto) 0.8 (0-4.4) % Baso % (Auto) 0.4 (0.2-1.2) % Lymph # (Auto) 1.62 (0.9-3.2) K/mm3 [place] # (Auto) 0.8 H (0.1-0.6) K/mm3 Eos # (Auto) 0.1 (0-0.3) K/mm3 Baso # (Auto) 0.0 (0.0-0.1) K/mm3 Abs Immat Gran (auto) 0.03 (0.00-0.031) K/mm3 Absolute Neuts (auto) 8.3 H (1.3-6.7) K/mm3 Absolute Nucleated RBC 0.000 (0.0-0.012) K/mm3 Nucleated RBC % 0.0 (0.0-0.2) % Sodium 137 (137-145) mmol/L Potassium 4.0 (3.4-5.0) mmol/L Chloride 101 (98-107) mmol/L Carbon Dioxide 26 (22-30) mmol/L Anion Gap 10 (4-12) mmol/L BUN 12 (7-17) mg/dL Creatinine 0.50 L (0.7-1.0) mg/dL Estim Creat Clear Calc 171 ml/min Estimated GFR > 60 (59 - ) Glucose 102 (65-110) mg/dL Calcium 9.4 (8.4-10.2) mg/dL Total Bilirubin 0.4 (0.2-1.3) mg/dL AST 23 (14-36) U/L ALT 16 (6-35) U/L Alkaline Phosphatase 76 (38-126) U/L Total Protein 8.0 (6.3-8.2) g/dL Albumin 4.4 (3.5-5.1) g/dL Lipase 751 H (23-300) U/L Urine Color Yellow (Yellow) Urine Appearance Cloudy H (Clear) Urine pH 7.5 (5.0-9.0) Ur Specific [place] 1.011 (1.001-1.035) Urine Protein Trace (Negative) mg/dL Urine Glucose (UA) Negative (Negative) mg/dL Urine Ketones Negative (Negative) mg/dL Ur Blood (Man) 2+ H (Negative) Urine Nitrate Negative (Negative) Urine Bilirubin Negative (Negative) Urine Urobilinogen 0.2 (<2.0) mg/dL Leukocyte Esterase Rfl 2+ H (Negative) GEETA/UL Urine RBC 6-10 H (0-2) /hpf Urine WBC 51-100 H (0-3) /hpf Ur Squamous Epith Cells Moderate (Few) /hpf Urine Bacteria 1+ H /hpf Urine Casts 0-2 POC Urine HCG, Qual Negative (Negative) Discharge Plan Discharge Clinical Impression: Pyelonephritis, Supraumbilical hernia, Lesion of liver Hernia, umbilical Qualifiers: Obstruction and gangrene presence: without obstruction or gangrene Qualified Code(s): K42.9 - Umbilical hernia without obstruction or gangrene Patient Disposition: Home, Self-Care Condition: Stable Instructions: Antibiotic Form, Abdominal Pain (ED) Additional Instructions: You were evaluated in the emergency department for abdominal pain and flank pain. Your found have a UTI. This is likely extending into your kidney causing pyelonephritis which would explain her symptoms. Please take the antibiotic as directed. Take Tylenol ibuprofen as needed for pain. Incidentally on the CT scan your found to have a very small liver lesion, please follow-up with your primary care provider regarding this. Her also found to have 2 small hernias in her abdomen. We discussed these findings in your requesting to follow-up with a surgeon. Return to the emergency department if you develop worsening or changing abdominal pain, fever, your unable to tolerate food or fluids, or other concerning symptoms. Prescriptions: New ciprofloxacin HCl 500 mg tablet 500 mg PO Q12H Qty: 14 0RF No Action ferrous sulfate [Iron (ferrous sulfate)] 325 mg (65 mg iron) Tablet 325 mg PO BID hydrocodone-acetaminophen 5-325 mg Tablet 1 tablet PO Q4H PRN (Reason: Pain Rated 5 Or Less) Qty: 30 0RF Follow-up/Referrals: Emelina,Maria Isabel Sullivan APRN [Primary Care Provider] - Peter Felix DO [Physician] - 2 Days
[2024-03-29 23:59] LABS: Basophils Percent Auto 0.4 % (0.2-1.2); Eosinophils Absolute Auto 0.1 K/mm3 (0-0.3); Eosinophils Percent Auto 0.8 % (0-4.4); Hematocrit 39.9 % (37.0-47.0); Hemoglobin 13.3 g/dL (12.0-15.0); Immature Granulocyte Absolute 0.03 K/mm3 (0.00-0.031); Immature Granulocyte Percent A 0.3 % (0-0.5); Lymphocytes Absolute Auto 1.62 K/mm3 (0.9-3.2); Mean Corpuscular HGB Conc 33.3 g/dl (32-36); Mean Corpuscular Hemoglobin 33.8 pg (26-34); Mean Corpuscular Volume 101.3 fl (80-100); Mean Platelet Volume 8.7 fl (7.4-10.4); Monocytes Absolute Auto 0.8 K/mm3 (0.1-0.6); Monocytes Percent Auto 7.3 % (2.6-8.5); Neutrophils Absolute Auto 8.3 K/mm3 (1.3-6.7); Neutrophils Percent Auto 76.2 % (45.5-73.1); Platelet Count Result 399 k/mm3 (150-375); Red Blood Count 3.94 M/mm3 (4.2-5.4); Red Cell Distribution Width 13.5 % (11.5-14.5); White Blood Count 10.8 K/mm3 (4.5-10.0)
[2024-03-30 00:12] LABS: Alanine Aminotransferase 16 U/L (6-35); Albumin Level 4.4 g/dL (3.5-5.1); Alkaline Phosphatase 76 U/L (38-126); Anion Gap 10 mmol/L (4-12); Aspartate Amino Transferase 23 U/L (14-36); Bilirubin,Total 0.4 mg/dL (0.2-1.3); Blood Urea Nitrogen 12 mg/dL (7-17); Calcium 9.4 mg/dL (8.4-10.2); Carbon Dioxide 26 mmol/L (22-30); Chloride 101 mmol/L (98-107); Estimated CRCL calculation 171 ml/min; Estimated Glomerular Filt Rate > 60; Glucose 102 mg/dL (65-110); Sodium 137 mmol/L (137-145)
[2024-03-30] MEDS: ONDANSETRON INJ 4 MG/2 ML VIAL IV PUSH (00:31)
[2024-03-30] MEDS: MORPHINE SULFATE (*CRX) 4 MG/ML INJ IV PUSH (00:31)
[2024-03-30 00:47] LABS: Lipase 751 U/L (23-300)
[2024-03-30 03:11] VITALS: BP 148/82; PULSE 82; RESP 14; O2SAT 100
[2024-03-30] MEDS: CIPROFLOXACIN 500 MG TAB PO (03:39)
== END 2024-03-30 04:12 | disposition home or self-care (01) ==
PROVIDERS: Emergency Provider Physician Assistant; PCP Nurse Practitioner Family
DX: N12 Tubulo-interstitial nephritis, not specified as acute or chronic (principal); K42.9 Umbilical hernia without obstruction or gangrene; K76.9 Liver disease, unspecified; G35 Multiple sclerosis; Z90.710 Acquired absence of both cervix and uterus
CPT/HCPCS: 36415; 74176; 80053; 81001; 81025; 83690; 85025; 87077; 87086; 87186; 96374; 96375; 99284; A9270; J2270; J2405

== ENCOUNTER 2024-08-19 05:52 | Emergency (ER) | payer OTHER, SELFPAY ==
[2024-08-19] VITALS (7 sets, daily range): BP systolic 137–155; BP diastolic 81–90; PULSE 69–90; RESP 16–20; TEMP 36.4–36.6; O2SAT 99–100
--- NOTE | ~2024-08-19 | CT_ITS ---
CT brain wo con Ordering provider: William Worley MD History: 48 years Female with . vertigo . Comparison: October 26, 2019 Technique: CT of the head without contrast. Radiation reduction technique utilized.The dose-length product was 681 mGy-cm. FINDINGS: BRAIN PARENCHYMA AND CSF SPACES: No midline shift, mass effect or hemorrhage. The brain parenchyma a nd CSF spaces are otherwise normal. Empty sella turcica. VISUALIZED PARANASAL SINUSES: Well aerated. MASTOIDS: Well aerated. BONES: The bones appear intact. SOFT TISSUES: Visualized nasopharynx is normal. Superficial soft tissues are normal. IMPRESSION: No acute intracranial findings. Reviewed, dictated and finalized at location A.
--- NOTE | ~2024-08-19 | XR_ITS ---
XR chest 1V portable Ordering provider: Linda Dowling MD History: 48 years Female with . syncope . Comparison: None. FINDINGS: MEDIASTINUM: The cardiac silhouette is slightly enlarged. Slightly congestive [place] LUNGS: No infiltrates, effusions or pneumothorax. OTHER: No free air under the diaphragm. IMPRESSION: No acute cardiopulmonary pathology Reviewed, dictated and finalized at location A.
--- OUTSIDE RECORDS SUMMARY | 2024-08-19 05:54 | XMS_ITS | Clinical Summary ---
Author Organization [facility] Address [address] [place] [address] Phone Care Team Providers Care Credit Administration Manager Name Role Phone Maria Isabel Tarango APRN, SAUL Primary Care Provider + Stanley Thorpe MD Unavailable [phone] Allergies Active Allergy Reactions Criticality Noted Date Comments Cat Dander Other (see Comments) ,Hives,Shortness of Breath High 06/06/1979 Kiwi Extract Shortness of Breath High 05/26/2021 Latex Hives 05/26/2021 Medications ergocalciferol (VITAMIN D) 56330 UNIT Capsule TAKE 1 CAPSULE BY MOUTH 1 TIME A WEEK FOR 8 DOSES 06/25/2021 Active cyanocobalamin 1000 MCG Tablet Take 1,000 mcg by mouth daily. Active Magnesium Oxide (MAG-200 PO) Take by mouth. Active Ferrous Sulfate (Iron) 325 (65 Fe) MG Tablet Take by mouth. Active Vitamin E 450 MG (1000 UT) Capsule Take 450 mg by mouth daily. 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 Gender Identity Not on file Sexual Orientation Not on file Last Filed Vital Signs Vital Sign Reading Time Taken Comments Blood Pressure 128/84 07/13/2021 10:27 AM MORTGAGE LOAN REVIEWER Pulse 85 07/13/2021 10:27 AM MORTGAGE LOAN REVIEWER Temperature 36.2 C (97.1 F) 07/13/2021 10:27 AM MORTGAGE LOAN REVIEWER Respiratory Rate 18 07/13/2021 10:2 7 AM MORTGAGE LOAN REVIEWER Oxygen Saturation 97% 07/13/2021 10: 27 AM MORTGAGE LOAN REVIEWER Inhaled Oxygen Concentration - - Weight 132.6 kg (292 lb 4.8 oz) 022 10:27 AM MORTGAGE LOAN REVIEWER Height 175.3 cm (5' 9 ) 07/13/2021 10:2 7 AM MORTGAGE LOAN REVIEWER Body Mass Index 43.17 07/13/2021 10:27 AM MORTGAGE LOAN REVIEWER Plan of Treatment Health Maintenance Due Date Last Done Comments Hepatitis C Virus (HCV) Screening 1975 Mammogram 1975 TdaP Immunization 1975 Hepatitis B Immunization (1 of 3 - 19+ 3-dose series) 12/18/1994 Pap Smear 12/18/1996 Cervical Cancer Screening (CCS) 12/18/2005 HPV/Cotest 12/18/2005 Discussion re Starting/Frequ ency of Mammograms 2015 Colonoscopy 12/18/2020 Colorectal Cancer Screening 12/18/2020 Influenza Immunization (#1) 2024 SARS-COV-2 Immunization ( season) 2024 Respiratory Syncytial Virus (RSV) Immunization (Adult) (1 - 1-dose 75+ series) 12/18/2050 Meningococcal Immunization (ACWY) Aged Out No longer eligible based on patient's age to complete this topic Pneumococcal Immunization Combined Aged Out No longer eligible based on patient's age to complete this topic Rotavirus Immunization Aged Out No lo nger eligible based on patient's age to complete this topic Insurance MEDICAID [place] Care Teams Credit Administration Manager Relationship Specialty Start Date End Date Maria Isabel Tarango APRN, BLANKING MACHINE OPERATOR [address] [place] [id number] PCP - General Family Medicine 06/16/21 Stanley Thorpe MD [address] [place] [address] [phone] Consulting Physician Oncology 06/16/21
--- OUTSIDE RECORDS SUMMARY | 2024-08-19 05:54 | XMS_ITS | Encounter Summary ---
Author Organization [facility] Address [facility] [place] [address] Care Team Providers Care Certified Vehicle Fire Investigator Name Role Phone Maria Isabel Tarango COMPANION Primary Care Provider Bina Hurley COMPANION Primary Care Provider [phone] Encounter Details Date Type Department Care Team (Late st Contact Info) Description 08/20/2021 [facility] Message Enc [facility] Family Medicine [address] [address] [place], [employer] Provider Surgical Clearance Social History Tobacco Use Types Packs/Day Years Used Date Smoking Tobacco: Never Smokeless Tobacco: Never Alcohol Use Standard Drinks/Week Comments Not Currently 0 (1 standard drink = 0.6 oz pur e alcohol) PHQ-2 Answer Date Recorded PHQ-2 Score - If the patient scores above 3, please move on to questions 3-9 6 05/26/2021 Comments No Sex and Gender Information Value Date Recorded Sex Assigned at Not on file Legal Sex Female 5:04 PM CDT Gender Identity Not on file Sexual Orientation Not on file COVID-19 Exposure Response Date Recorded In the last 10 days, have yo u been in contact with someone who was confirmed or suspected to have Coronavirus/COVID-19? No / Unsure 07/29/2021 6:35 PM VACUUM PLASTIC FORMING MACHINE OPERATOR documented as of this encounter Plan of Treatment Not on file documented as of this encounter Visit Diagnoses Not on filedocumented in this encounter Additional Health Concerns Assessment Noted Time PHQ-9 Depression Total Score: 21 021 2:00 PM VACUUM PLASTIC FORMING MACHINE OPERATOR documented as of this encounter Care Teams Certified Vehicle Fire Investigator Relationship Specialty Start Date End Date Maria Isabel Tarango, COMPANION PCP - General NURSE PRACTITIONER 12/06/19 11/02/23 Bina Mehta, COMPANION [address] [facility] [address] [place] [address] PCP - General NURSE PRACTITIONER 11/03/23 documented as of this encounter
--- OUTSIDE RECORDS SUMMARY | 2024-08-19 05:54 | XMS_ITS | Data Portability ---
Author Organization [place] [facility],, Dalila matthews Address [address] [place] [address] Assessment Encounter Date Assessment Date Assessment LastModified by Organization Details LastModified Time 11/14/2014 11/14/2014 Multiple medical problems-the most concerning is the intermittent and unexplained neurologic symptoms of numbness and vertigo. I will have her see a neurologist. Fatigue.-Will check blood work. [email or web address] Not available 11/15/2014 10:15:59 12/12/2014 12/12/2014 Neurologic symptoms-will see a neurologist for evaluation. Chronic neck and back pain. I have encouraged exercise and weight loss. She howver would probably benefit from breast reduction surgery. I would have her get a consultation with a breast surgeon about possible breast reduction. [email or web address] Not available 12/12/2014 19:01:08 03/18/2016 03/18/2016 rhinitis [email or web address] Not available 03/06 12:05:28 Plan of Treatment Reminders Order Date Submit Date Provider Last Modified By Organization Details Last Modified Time Details Appointments None recorde d. Lab TSH + free T4, serum 2014 015 [email or web address] [facility], [address], [address], [place], [address], 5 10:16:30 CBC w/ auto diff 2014 015 [email or web address] [facility], [address], [address], [place], [address], 5 10:15:59 CMP, serum or plasma 2014 015 [email or web address] [facility], [address], [place], [address], 5 10:15:59 lipid panel, serum 2014 015 [email or web address] [facility], [address], [address], [place], [address], 5 10:15:59 vitamin B12, serum 2014 015 [email or web address] [facility], [address], [address], [place], [address], 5 10:15:59 vitamin D, 25-hydr oxy, total, serum 2014 015 [email or web address] [facility], [address], [address], [place], [address], 5 10:15:59 Referral physica l therapi st referra l 2017 018 nkoenig [facility], [address] [place] [address], [address], 8 09:51:33 breast surgery referra l 2014 015 [email or web address] Not available 6 11:28:30 neurolo gist referra l 2014 015 nkoenig Joselin Larson, [address], [place], [address], Ph [phone] 5 09:58:06 Procedures None recorde d. Surgeries None recorde d. Imaging None recorde d. Medication Orders amitrip tyline 25 mg tablet 2017 018 [id number], [address], [id number], 8 13:55:55 flutica sone propion ate 50 mcg/act uation nasal spray,s uspensi on 2015 016 [id number] [facility] #68092, [address] [place] [address], [id number], 6 04:11:20 Valium 2 mg tablet 2015 016 [id number] [facility] #[id number], [address] [place] [address], [id number], 6 04:11:20 Medrol (Nic) 4 mg tablets in a dose pack 2015 016 vmiddendorf [facility] #[id number], [address] [facility] [address] [place] [address], [id number], 8 13:31:52 Patient TargetsNo targets recorded. Patient Instructions Encounter Date Encounter Id Patient Instructions Last Modified By Organization Details Last Modified Time 03/18/2016 [id number] managing your allergies: care instructions [email or web address] Not available 03/30/2016 10:49:55 seasonal allergies: care instructions [email or web address] Not available 03/30/2016 10:49:55 benign paroxysma l positional vertigo (bppv): care instructions [email or web address] Not available 03/30/2016 10:49:55 dizziness: care instructions [email or web address] Not available 03/30/2016 10:49:55 She may have had a post concussive syndrome, but her sinus problems are significant on exam and this appears to be peripheral vertigo. We can try low dose Valium and give Medrol dose pack and Flonase to get her rhinitis optimized and improve her middle ear drainage. She may benefit from MRI head and also see Dr. Tor[facility] if not improved. She may benefit from balance training and exercises also. [email or web address] Not available 03/18/2016 22:21:25 Reason for Referral Neurologist Referral for Num bness and tingling sensation of skin Referring Physician: Travis Maier, Allergy/Immunology, Encounter Date: 11/14/2014 Breast Surgery Referral for Chronic back pain breast reduction Referring Physician: Travis Maier, Allergy/Immunology, Encounter Date: 12/12/2014 Referring Physician: Travis Maier, Allergy/Immunology, Encounter Date: 10/13/2017 Results Created Date Observation Date Name Description Value Unit Range Abnormal Flag Note LastModifiedBy Organization Detail LastModifiedTime 11/15/19 15 11/15/2014 lipid panel , serum cholesterol, total 106 mg/dL 125-20 0 low Not Available [facility] [address] [place], [address], 11/15/2014 08:12:35 11/15/19 15 11/15/2014 lipid panel , serum HDL cholesterol 45 mg/dL > or = 46 low Not Available [facility] [address], [address], 11/15/2014 08:12:35 11/15/19 15 11/15/2014 lipid panel , serum triglyceride s 34 mg/dL <150 normal Not Available [facility] [address] [place], [address], 11/15/2014 08:12:35 11/15/1911/15/2014 lipid panel , serum LDL-choleste rol 54 mg/dL _(fei c) <130 normal Yu able range <100 mg/dL for patie nts with CHD or diabe raymundo and <70 mg/dL for diabe tic patie nts with known heart disea se. Not Available [facility] [address] [place], [address], 11/15/2014 08:12:35 11/15/1911/15/2014 lipid panel , serum chol/HDLC ratio 2.4 (calc ) < or = 5.0 normal Not Available [facility] [address] [place], [address], 11/15/2014 08:12:35 11/15/19 15 11/15/2014 lipid panel , serum non HDL cholesterol 61 mg/dL _(fei c) normal Targe t for non-H DL sharmila stero l is 30 mg/dL highe r than LDL sharmila stero l targe t. Not Available [address], [address], 11/15/2014 08:12:35 11/15/19 15 11/15/2014 CMP, serum or plasm a glucose 95 mg/dL 65-99 normal Fasti ng refer ence inter carmenza Not Available [address], [address], 11/15/2014 08:12:36 11/15/19 15 11/15/2014 CMP, serum or plasm a urea nitrogen (BUN) 12 mg/dL 7-25 normal Not Available [address], [address], 11/15/2014 08:12:36 11/15/19 15 11/15/2014 CMP, serum or plasm a creatinine 0.70 mg/dL 0.50-1 .10 normal Not Available [address], [address], 11/15/2014 08:12:36 11/15/19 15 11/15/2014 CMP, serum or plasm a eGFR non-afr. chilean 110 mL/mi n/1.7 3m2 > or = 60 normal Not Available [address], [address], 11/15/2014 08:12:36 11/15/19 15 11/15/2014 CMP, serum or plasm a eGFR 127 mL/mi n/1.7 3m2 > or = 60 normal Not Available [facility] [address], [address], 11/15/2014 08:12:36 11/15/19 15 11/15/2014 CMP, serum or plasm a BUN/creatini ne ratio NOT APPLIC ABLE (calc ) 6-22 Not Available [address], [address], 11/15/2014 08:12:36 11/15/19 15 11/15/2014 CMP, serum or plasm a sodium 142 mmol/ L 135-14 6 normal Not Available [address], [address], 11/15/2014 08:12:36 11/15/19 15 11/15/2014 CMP, serum or plasm a potassium 4.5 mmol/ L 3.5-5. 3 normal Not Available [address], [address], 11/15/2014 08:12:36 11/15/1911/15/2014 CMP, serum or plasm a chloride 108 mmol/ L 98-110 normal Not Available [address], [address], 11/15/2014 08:12:36 11/15/19 15 11/15/2014 CMP, serum or plasm a carbon dioxide 24 mmol/ L 19-30 normal Not Available [address], [address], 11/15/2014 08:12:36 11/15/19 15 11/15/2014 CMP, serum or plasm a calcium 9.5 mg/dL 8.6-10 .2 normal Not Available [address], [address], 11/15/2014 08:12:36 11/15/1911/15/2014 CMP, serum or plasm a protein, total 7.3 g/dL 6.1-8. 1 normal Not Available [address], [address], 11/15/2014 08:12:36 11/15/1911/15/2014 CMP, serum or plasm a albumin 4.3 g/dL 3.6-5. 1 normal Not Available [address], [address], 11/15/2014 08:12:36 11/15/19 15 11/15/2014 CMP, serum or plasm a globulin 3.0 g/dL_ (calc ) 1.9-3. 7 normal Not Available [address], [address], 11/15/2014 08:12:36 11/15/19 15 11/15/2014 CMP, serum or plasm a albumin/glob ulin ratio 1.4 (calc ) 1.0-2. 5 normal Not Available [address], [address], 11/15/2014 08:12:36 11/15/19 15 11/15/2014 CMP, serum or plasm a bilirubin, total 0.4 mg/dL 0.2-1. 2 normal Not Available [address], [address], 11/15/2014 08:12:36 11/15/19 15 11/15/2014 CMP, serum or plasm a alkaline phosphatase 57 U/L 33-115 normal Not Available [facility] [address], [address], 11/15/2014 08:12:36 11/15/19 15 11/15/2014 CMP, serum or plasm a AST 19 U/L 10-30 normal Not Available [address], [address], 11/15/2014 08:12:36 11/15/19 15 11/15/2014 CMP, serum or plasm a ALT 13 U/L 6-29 normal Not Available [address], [address], 11/15/2014 08:12:36 11/15/19 15 11/15/2014 vitam in D, 25-hy droxy , total , serum vitamin D,25-oh,tota l,ia 26 NG/mL 30-100 low Vitam in D Statu s 25-OH Vitam in D: Defic iency : <20 ng/mL Insuf ficie ncy: 20 - 29 ng/mL Optim al: > or = 30 ng/mL For 25-OH Vitam in D testi ng on patie nts on D2-vargas pplem entat ion and patie nts for whom quant itati on of D2 and D3 fract ions is requi red, the [facility] Assur eD(TM ) 25-OH VIT D, (D2,D 3), LC/MS /MS is recom mervin d: order code 27872 (jaya ents >2yrs ). For more infor claudia de jesus on this test, go to: http: //aura lino ics.c om/fa q/FAQ 163 Not Available [address] [place], [address], 11/15/2014 08:12:37 11/15/1911/15/2014 TSH, serum or plasm a TSH 0.21 mIU/L low Refer ence Range > or = 20 Years 0.40- 4.50 Pregn margret Range s First trime ster 0.26- 2.66 Secon d trime ster 0.55- 2.73 Third trime ster 0.43- 2.91 Not Available [address] [address] [place], [address], 11/15/2014 08:12:37 11/15/1911/15/2014 T4, free, serum T4, free 1.1 NG/dL 0.8-1. 8 normal Not Available [facility] [address] [address] [place], [address], 11/15/2014 08:12:38 11/15/1911/15/2014 CBC w/ auto diff white blood cell count 6.6 thous and/u L 3.8-10 .8 normal Not Available [facility] [address] [address] [place], [address], 11/15/2014 08:12:38 11/15/19 15 11/15/2014 CBC w/ auto diff red blood cell count 3.87 maureen on/uL 3.80-5 .10 normal Not Available [address], [address], 11/15/2014 08:12:38 11/15/19 15 11/15/2014 CBC w/ auto diff hemoglobin 12.6 g/dL 11.7-1 5.5 normal Not Available [address], [address], 11/15/2014 08:12:38 11/15/19 15 11/15/2014 CBC w/ auto diff hematocrit 39.6 % 35.0-4 5.0 normal Not Available [address], [address], 11/15/2014 08:12:38 11/15/19 15 11/15/2014 CBC w/ auto diff MCV 102.3 fL 80.0-1 00.0 high Not Available [address], [address], 11/15/2014 08:12:38 11/15/19 15 11/15/2014 CBC w/ auto diff MCH 32.6 pg 27.0-3 3.0 normal Not Available [address], [address], 11/15/2014 08:12:38 11/15/19 15 11/15/2014 CBC w/ auto diff MCHC 31.9 g/dL 32.0-3 6.0 low Not Available [address], [address], 11/15/2014 08:12:38 11/15/19 15 11/15/2014 CBC w/ auto diff RDW 14.8 % 11.0-1 5.0 normal Not Available [address], [address], 11/15/2014 08:12:38 11/15/19 15 11/15/2014 CBC w/ auto diff platelet count 419 thous and/u L 140-40 0 high Not Available [address], [address], 11/15/2014 08:12:38 11/15/19 15 11/15/2014 CBC w/ auto diff MPV 7.7 fL 7.5-11 .5 normal Not Available [address], [address], 11/15/2014 08:12:38 11/15/19 15 11/15/2014 CBC w/ auto diff absolute neutrophils 4290 cells /uL 1500-7 800 normal Not Available [address], [address], 11/15/2014 08:12:38 11/15/19 15 11/15/2014 CBC w/ auto diff absolute lymphocytes 1591 cells /uL 850-39 00 normal Not Available [address], [address], 11/15/2014 08:12:38 11/15/19 15 11/15/2014 CBC w/ auto diff absolute monocytes 548 cells /uL 200-95 0 normal Not Available [address], [address], 11/15/2014 08:12:38 11/15/19 15 11/15/2014 CBC w/ auto diff absolute eosinophils 139 cells /uL 15-500 normal Not Available [address], [address], 11/15/2014 08:12:38 11/15/19 15 11/15/2014 CBC w/ auto diff absolute basophils 33 cells /uL 0-200 normal Not Available [address], [address], 11/15/2014 08:12:38 11/15/19 15 11/15/2014 CBC w/ auto diff neutrophils 65.0 % normal Not Available [address] [place], [address], 11/15/2014 08:12:38 11/15/19 15 11/15/2014 CBC w/ auto diff lymphocytes 24.1 % normal Not Available [address], [address], 11/15/2014 08:12:38 11/15/19 15 11/15/2014 CBC w/ auto diff monocytes 8.3 % normal Not Available [address] [place], [address], 11/15/2014 08:12:38 11/15/19 15 11/15/2014 CBC w/ auto diff eosinophils 2.1 % normal Not Available [address], [address], 11/15/2014 08:12:38 11/15/19 15 11/15/2014 CBC w/ auto diff basophils 0.5 % normal Not Available [address], [address], 11/15/2014 08:12:38 11/15/19 15 11/15/2014 vitam in B12, serum vitamin B12 540 pg/mL 200-11 00 normal Not Available [address], [address], 11/15/2014 08:12:38 03/18/20 16 03/19/2016 lipid panel , serum cholesterol, total 104 mg/dL 125-20 0 low Not Available [address], [address], 03/19/2016 09:32:59 03/18/20 16 03/19/2016 lipid panel , serum HDL cholesterol 44 mg/dL > or = 46 low Not Available [address], [address], 03/19/2016 09:32:59 10/13/20 16 03/19/2016 lipid panel , serum triglyceride s 39 mg/dL <150 normal Not Available [address], [address], 03/19/2016 09:32:59 03/18/20 16 03/19/2016 lipid panel , serum LDL-choleste rol 52 mg/dL _(fei c) <130 normal Yu able range <100 mg/dL for patie nts with CHD or diabe raymundo and <70 mg/dL for diabe tic patie nts with known heart disea se. Not Available [address], [address], 03/19/2016 09:32:59 03/18/20 16 03/19/2016 lipid panel , serum chol/HDLC ratio 2.4 (calc ) < or = 5.0 normal Not Available [address], [address], 03/19/2016 09:32:59 03/18/2003/19/2016 lipid panel , serum non HDL cholesterol 60 mg/dL _(fei c) normal Targe t for non-H DL sharmila stero l is 30 mg/dL highe r than LDL sharmila stero l targe t. Not Available [address], [address], 03/19/2016 09:32:59 03/18/20 16 03/19/2016 CMP, serum or plasm a glucose 79 mg/dL 65-99 normal Fasti ng refer ence inter carmenza Not Available [address], [address], 03/19/2016 09:32:59 03/18/20 16 03/19/2016 CMP, serum or plasm a urea nitrogen (BUN) 7 mg/dL 7-25 normal Not Available [facility] [address], [address], 03/19/2016 09:32:59 03/18/20 16 03/19/2016 CMP, serum or plasm a creatinine 0.66 mg/dL 0.50-1 .10 normal Not Available [address], [address], 03/19/2016 09:32:59 03/18/20 16 03/19/2016 CMP, serum or plasm a eGFR non-afr. chilean 110 mL/mi n/1.7 3m2 > or = 60 normal Not Available [address], [address], 03/19/2016 09:32:59 03/18/20 16 03/19/2016 CMP, serum or plasm a eGFR 128 mL/mi n/1.7 3m2 > or = 60 normal Not Available [address], [address], 03/19/2016 09:32:59 03/18/20 16 03/19/2016 CMP, serum or plasm a BUN/creatini ne ratio NOT APPLIC ABLE (calc ) 6-22 Not Available [address], [address], 03/19/2016 09:32:59 03/18/20 16 03/19/2016 CMP, serum or plasm a sodium 140 mmol/ L 135-14 6 normal Not Available [address], [address], 03/19/2016 09:32:59 03/18/20 16 03/19/2016 CMP, serum or plasm a potassium 4.0 mmol/ L 3.5-5. 3 normal Not Available [facility] [address], [address], 03/19/2016 09:32:59 03/18/20 16 03/19/2016 CMP, serum or plasm a chloride 105 mmol/ L 98-110 normal Not Available [address], [address], 03/19/2016 09:32:59 03/18/20 16 03/19/2016 CMP, serum or plasm a carbon dioxide 28 mmol/ L 20-31 normal Not Available [address], [address], 03/19/2016 09:32:59 03/18/20 16 03/19/2016 CMP, serum or plasm a calcium 9.4 mg/dL 8.6-10 .2 normal Not Available [address], [address], 03/19/2016 09:32:59 03/18/20 16 03/19/2016 CMP, serum or plasm a protein, total 7.1 g/dL 6.1-8. 1 normal Not Available [address], [address], 03/19/2016 09:32:59 03/18/20 16 03/19/2016 CMP, serum or plasm a albumin 4.4 g/dL 3.6-5. 1 normal Not Available [address], [address], 03/19/2016 09:32:59 03/18/20 16 03/19/2016 CMP, serum or plasm a globulin 2.7 g/dL_ (calc ) 1.9-3. 7 normal Not Available [address], [address], 03/19/2016 09:32:59 03/18/20 16 03/19/2016 CMP, serum or plasm a albumin/glob ulin ratio 1.6 (calc ) 1.0-2. 5 normal Not Available [address], [address], 03/19/2016 09:32:59 03/18/20 16 03/19/2016 CMP, serum or plasm a bilirubin, total 0.5 mg/dL 0.2-1. 2 normal Not Available [address], [place], [address], 03/19/2016 09:32:59 03/18/20 16 03/19/2016 CMP, serum or plasm a alkaline phosphatase 50 U/L 33-115 normal Not Available [facility] [address], [address], 03/19/2016 09:32:59 03/18/20 16 03/19/2016 CMP, serum or plasm a AST 16 U/L 10-30 normal Not Available [address] [address] [place], [address], 03/19/2016 09:32:59 03/18/20 16 03/19/2016 CMP, serum or plasm a ALT 11 U/L 6-29 normal Not Available [address], [address], 03/19/2016 09:32:59 03/18/20 16 03/19/2016 CBC w/ auto diff white blood cell count 6.1 thous and/u L 3.8-10 .8 normal Not Available [address], [address], 03/19/2016 09:33:00 03/18/20 16 03/19/2016 CBC w/ auto diff red blood cell count 3.96 maureen on/uL 3.80-5 .10 normal Not Available [address], [address], 03/19/2016 09:33:00 03/18/20 16 03/19/2016 CBC w/ auto diff hemoglobin 12.9 g/dL 11.7-1 5.5 normal Not Available [facility] [address], [address], 03/19/2016 09:33:00 03/18/20 16 03/19/2016 CBC w/ auto diff hematocrit 39.6 % 35.0-4 5.0 normal Not Available [facility] [address], [address], 03/19/2016 09:33:00 03/18/20 16 03/19/2016 CBC w/ auto diff MCV 99.9 fL 80.0-1 00.0 normal Not Available [address], [address], 03/19/2016 09:33:00 03/18/20 16 03/19/2016 CBC w/ auto diff MCH 32.4 pg 27.0-3 3.0 normal Not Available [address], [address], 03/19/2016 09:33:00 03/18/20 16 03/19/2016 CBC w/ auto diff MCHC 32.5 g/dL 32.0-3 6.0 normal Not Available [address], [address], 03/19/2016 09:33:00 03/18/20 16 03/19/2016 CBC w/ auto diff RDW 14.9 % 11.0-1 5.0 normal Not Available [address], [address], 03/19/2016 09:33:00 03/18/20 16 03/19/2016 CBC w/ auto diff platelet count 397 thous and/u L 140-40 0 normal Not Available [address], [address], 03/19/2016 09:33:00 03/18/20 16 03/19/2016 CBC w/ auto diff MPV 8.2 fL 7.5-11 .5 normal Not Available [address], [address], 03/19/2016 09:33:00 03/18/20 16 03/19/2016 CBC w/ auto diff absolute neutrophils 3752 cells /uL 1500-7 800 normal Not Available [address] [place], [address], 03/19/2016 09:33:00 03/18/20 16 03/19/2016 CBC w/ auto diff absolute lymphocytes 1678 cells /uL 850-39 00 normal Not Available [address] [address] [place], [address], 03/19/2016 09:33:00 03/18/20 16 03/19/2016 CBC w/ auto diff absolute monocytes 537 cells /uL 200-95 0 normal Not Available [facility] [address] [address] [place], [address], 03/19/2016 09:33:00 03/18/20 16 03/19/2016 CBC w/ auto diff absolute eosinophils 92 cells /uL 15-500 normal Not Available [facility] [address] [place], [address], 03/19/2016 09:33:00 03/18/20 16 03/19/2016 CBC w/ auto diff absolute basophils 43 cells /uL 0-200 normal Not Available [address] [address] [place], [address], 03/19/2016 09:33:00 03/18/20 16 03/19/2016 CBC w/ auto diff neutrophils 61.5 % normal Not Available [address] [address] [place], [address], 03/19/2016 09:33:00 03/18/20 16 03/19/2016 CBC w/ auto diff lymphocytes 27.5 % normal Not Available [facility] [address] [address] [place], [address], 03/19/2016 09:33:00 03/18/20 16 03/19/2016 CBC w/ auto diff monocytes 8.8 % normal Not Available [facility] [address] [address] [place], [address], 03/19/2016 09:33:00 03/18/20 16 03/19/2016 CBC w/ auto diff eosinophils 1.5 % normal Not Available [facility] [address] [address] [place], [address], 03/19/2016 09:33:00 03/18/20 16 03/19/2016 CBC w/ auto diff basophils 0.7 % normal Not Available [address] [address] [place], [address], 03/19/2016 09:33:00 03/18/20 16 03/19/2016 vitam in B12 + folat e, serum or blood vitamin B12 1007 pg/mL 200-11 00 normal Not Available [facility] [address], [address], 03/19/2016 09:33:00 03/18/20 16 03/19/2016 vitam in B12 + folat e, serum or blood folate, serum 13.1 NG/mL normal Refer ence Range Low: <3.4 Borde rline : 3.4-5 .4 Alura l: >5.4 Not Available [address] [place], [address], 03/19/2016 09:33:00 03/18/20 16 03/19/2016 vitam in D, 25-hy droxy , total , serum vitamin D,25-oh,tota l,ia 38 NG/mL 30-100 normal Vitam in D Statu s 25-OH Vitam in D: Defic iency : <20 ng/mL Insuf ficie ncy: 20 - 29 ng/mL Optim al: > or = 30 ng/mL For 25-OH Vitam in D testi ng on patie nts on D2-vargas pplem entat ion and patie nts for whom quant itati on of D2 and D3 fract ions is requi red, the [facility] Assur eD(TM ) 25-OH VIT D, (D2,D 3), LC/MS /MS is recom mervin d: order code [id number] (jaya ents >2yrs ). For more infor claudia de jesus on this test, go to: http: //edu tae green gnmirtha ics.c om/fa q/FAQ 163 (This link is being provi ded for infor claudia nal/e ducat ional purpo ses only. ) Not Available [address] [address] [place], [address], 03/19/2016 09:33:00 03/18/20 16 03/19/2016 HbA1c (hemo globi n A1c), blood hemoglobin A1C 4.9 %_of_ total _HGB <5.7 normal Accor ding to ADA guide lines , hemog lobin A1c <7.0% repre sents optim al contr ol in non-p regna nt diabe tic patie nts. Diffe rent metri cs may apply to speci fic patie nt popul ation s. [facility] al Care in Diabe raymundo-2 013. Diabe raymundo Care. 2013; 36:s1 1-s66 For the purpo se of anita carcamo for the prese nce of diabe raymundo <5.7% Consi stent with the absen ce of diabe raymundo 5.7-6 .4% Consi stent with incre ased risk for diabe raymundo (pred iabet es) >or=6 .5% Consi stent with diabe raymundo This assay resul t is consi stent with a decre ased risk of diabe raymundo. Curre ntly, no conse nsus exist s for use of hemog lobin A1c for diagn osis of diabe raymundo for child babita. Not Available [address] , [place], [address], 03/19/2016 09:33:01 09/18/19 16 09/11/2015 CT, cervi fei spine , w/o contr ast No observ ation record ed. [email or web address] Not Available 08:07:02 09/18/19 16 09/11/2015 x-ray , shoul christo, 2 views No observ ation record ed. [email or web address] Not Available 08:07:03 09/18/19 16 09/11/2015 x-ray , hip, 3 view No observ ation record ed. [email or web address] Not Available 08:07:03 Result Notes None recorded. Problems Name Problem SNOMED Code Status Onset Date Resolution Date Notes Provider Name and Address Organization Details Recorded Time Numbness and tingling sensation of skin 887778069771 Active MD [address], [place], [address], [place] [facility], 5 19:01:08 Dizziness 637661879 Active MD [address], [place], [address], [place] [facility], 5 10:15:59 Vertigo 876056899 Active MD [address], [place], [address], [place] [facility], 5 10:15:59 Fatigue 31541673 Active MD [address], [place], [address], [place] [facility], 5 10:15:59 Chronic back pain 267085524 Active MD [address], [place], [address], [place] [facility], 5 19:01:08 Problem Notes None recorded. Procedures Surgical History None recorded. Imaging Results Imaging Date Name Status LastModified by Organiz ation Details LastModified Time 09/11/2015 CT, cervical spine, w/o contrast completed Information not available 09/21/2015 08:07:02 09/11/2015 x-ray, shoulder, 2 views completed Information not available 09/21/2015 08:07:03 09/11/2015 x-ray, hip, 3 view completed Information not available 09/21/2015 08:07:03 Procedure Notes None recorded. Medical Equipment None Reported. Allergies No known drug allergies Medications Name Sig Start Date Stop Date Status Note LastModified by Organization Details LastModified Time cyclobenzap rine 10 mg tablet active Not Available Not Available Not Available Medrol (Nic) 4 mg tablets in a dose pack Take 6 tablets every day by oral route as directed. 10/13 completed Not Available Not Available Not Available amitriptyli ne 25 mg tablet Take 1 tablet every day by oral route for 30 days. 2017 active Not Available Not Available Not Avai lable diazepam 2 mg tablet Take 1 tablet 3 times a day by oral route as needed. active Not Available Not Available No t Available ibuprofen 600 mg tablet active Not Available Not Available Not Available fluticasone propionate 50 mcg/actuati on nasal spray,suspe nsion Inhale 2 sprays every day by intranasa l route. 2015 active Not Available Not Available Not Avai lable Vitals Date Recorded Body weight Body temperature Body mass index (BMI) Body height Systolic blood pressure Diastolic blood pressure Provider Name and Address Organization Details Last Updated DateTime 5 033066. 04560 g 98.6 [degF] 39.6 kg/m2 174.625 cm 144 mm[Hg] 96 mm[Hg] Patricia Jamison [place] [facility], 5 15:20:44 Date Recorded Body temperature Body mass index (BMI) Body height Provider Name and Address Organization Details Last Updated DateTime 12/12/2014 98 [degF] 40 kg/m2 175.26 cm Travis Maier MD [address] ,[address], [place], [address], [place] [facility], 12/12/2014 16:41:31 Date Recorded Body weight Systolic blood pressure Diastolic blood pressure Provider Name and Address Organization Details Last Updated DateTime 12/12/2014 533253.532 27 g 122 mm[Hg] 78 mm[Hg] Gloria Dimas [place] [facility], 12/12/2014 16:09:04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
--- OUTSIDE RECORDS SUMMARY | 2024-08-19 05:54 | XMS_ITS | Clinical Summary ---
Author Organization [facility] Address [facility] [place] [address] Care Team Providers Care Junior Database Administrator Name Role Phone Bina Mehta CREEL SELECTOR Primary Care Provider [phone] Allergies Active Allergy Reactions Criticality Noted Date Comments Cat Dander Eyes Water & Itch,Hi ves,Shortness of Breath,Sneezing,Other (see comment) High 06/06/1979 Kiwi Extract Shortness of Breath High 05/26/2021 Kiwi Fruit Shortness of Breath High 05/26/2021 Latex Hives 05/26/2021 Seasonal Cough,Eyes Water & I tch,Headache,Runny Nose,Sneezing 05/26/2021 Medications Magnesium Oxide 200 MG Tab Active vitamin B-12 1000 MCG tablet Take 1,000 mcg by mouth daily. Active ferrous sulfate, 65 mg elemental, 325 (65 FE) MG tablet Active Ascorbic Acid (VITAMIN C) 100 MG tablet Take 100 mg by mouth daily. Active Active Problems Problem Noted Date Diagnosed Date Multiple sclerosis, relapsing-remitting (CMS/HCC HHS/HCC) 05/26/2021 Acute pain of right knee 12/06/2019 Family History Medical History Relation Comments None Brother None Father None Mother None Sister Relation Status Comments Brother Alive Father Alive Mother Alive Sister Alive Social History Tobacco Use Types Packs/Day Years Used Date Smoking Tobacco: Never Smokeless Tobacco: Never Tobacco Cessation:Counseling Given: No Alcohol Use Standard Drinks/Week Comments Not Currently [...] Sign Reading Time Taken Comments Blood Pressure 122/76 09/24/2021 11:05 AM CDT Pulse 87 09/24/2021 11:05 AM CDT Temperature 35.9 C (96.7 F) 09/24/2021 11:05 AM CDT Respiratory Rate 18 09/24/2021 11:0 5 AM CDT Oxygen Saturation 98% 09/24/2021 11: 05 AM CDT Inhaled Oxygen Concentration - - Weight 130.7 kg (288 lb 3.2 oz) 022 11:05 AM CDT Height 175.3 cm (5' 9 ) 09/24/2021 11:0 5 AM CDT Body Mass Index 42.56 09/24/2021 11:05 AM CDT Plan of Treatment Health Maintenance Due Date Last Done Comments Cervical Cancer Screening Pa p Smear (Age 30 to 64) Every 3 Years 1975 Annual Physical 12/18/1978 Hepatitis C 12/18/1993 DTaP, Tdap and Td Vaccines ( 1 - Tdap) 12/18/1994 Hepatitis B Vaccines (1 of 3 - 19+ 3-dose series) 12/18/1994 Cervical Cancer Screening Pa p with HPV Testing (Age 30 to 64) Every 5 Years 12/18/2005 Cervical Cancer Screening with HPV 12/18/2005 Mammogram Screening 2015 COVID-19 Vaccine (2023-2 5 season) 2024 Influenza Adult (#1) 2024 Colorectal Cancer Screening Colonoscopy (10 Years) 08/20/2031 08/19/2021 Meningococcal B Vaccine Aged Out No l onger eligible based on patient's age to complete this topic Meningococcal Vaccine Aged Out No erendira shawn eligible based on patient's age to complete this topic Pneumococcal Vaccine: Pediat rics (0 to 5 Years) and At-Risk Patients (6 to 64 Years) Aged Out No longer eligi ble based on patient's age to complete this topic RSV Immunizations Under 20 Months Aged Out No longer eligible based on patient's age to complete this topic Procedures Procedure Name Priority Date/Time Associated Diagnosis Comments COLONOSCOPY GENERIC (SCAN ORDER) 08/19/2021 from Last 3 Months or Most Recently Relevant to Health Maintenance Results * COLONOSCOPY GENERIC (08/19/2021) 08/19/2021 Narrative 08/19/2021 Ordered by an unspecified provider. us Documents Scanned SCANNING Final Result from Last 3 Months or Most Recently Relevant to Health Maintenance Insurance [place] [address] Care Teams Junior Database Administrator Relationship Specialty Start Date End Date Bina Mehta, CREEL SELECTOR [address] [facility] [address] [place] [address] PCP - General NURSE PRACTITIONER 11/03/23
--- NOTE | 2024-08-19 06:10 | ECG_ITS ---
Test Date: 2024-08-19 06:18:50 Measurements Intervals Pierson Rate: 80 P: 30 NM: 170 QRS: -8 QRSD: 118 T: 55 QT: 364 QTc: 422 Interpretive Statements SINUS RHYTHM WITH OCCASIONAL VENTRICULAR PREMATURE COMPLEXES INTRAVENTRICULAR CONDUCTION DELAY Electronically Signed On 08-19-2024 14:01:41 CDT by Rajiv Escalona D.O
[2024-08-19 06:32] LABS: Basophils Percent Auto 0.4 % (0.2-1.2); Eosinophils Absolute Auto 0.3 K/mm3 (0-0.3); Eosinophils Percent Auto 2.7 % (0-4.4); Hematocrit 39.9 % (37.0-47.0); Hemoglobin 13.2 g/dL (12.0-15.0); Immature Granulocyte Absolute 0.05 K/mm3 (0.00-0.031); Immature Granulocyte Percent A 0.5 % (0-0.5); Lymphocytes Absolute Auto 2.26 K/mm3 (0.9-3.2); Lymphocytes Percent Auto 21.9 % (18.3-44.2); Mean Corpuscular HGB Conc 33.1 g/dl (32-36); Mean Corpuscular Hemoglobin 33.7 pg (26-34); Mean Corpuscular Volume 101.8 fl (80-100); Mean Platelet Volume 8.5 fl (7.4-10.4); Monocytes Percent Auto 10.1 % (2.6-8.5); Neutrophils Absolute Auto 6.6 K/mm3 (1.3-6.7); Neutrophils Percent Auto 64.4 % (45.5-73.1); Platelet Count Result 374 k/mm3 (150-375); Red Blood Count 3.92 M/mm3 (4.2-5.4); White Blood Count 10.3 K/mm3 (4.5-10.0)
[2024-08-19 06:42] LABS: Alanine Aminotransferase 28 U/L (6-35); Albumin Level 4.2 g/dL (3.5-5.1); Alkaline Phosphatase 66 U/L (38-126); Anion Gap 9 mmol/L (4-12); Aspartate Amino Transferase 29 U/L (14-36); Bilirubin,Total 0.2 mg/dL (0.2-1.3); Blood Urea Nitrogen 17 mg/dL (7-17); Calcium 9.1 mg/dL (8.4-10.2); Carbon Dioxide 26 mmol/L (22-30); Chloride 104 mmol/L (98-107); Estimated CRCL calculation 123 ml/min; Estimated Glomerular Filt Rate > 60; Glucose 92 mg/dL (65-110); Potassium 4.1 mmol/L (3.4-5.0); Sodium 139 mmol/L (137-145)
[2024-08-19] MEDS: MECLIZINE HCL 25 MG TABLET PO (07:28)
--- OUTSIDE RECORDS SUMMARY | 2024-08-19 07:44 | XMS_ITS | Clinical Summary ---
Author Organization [facility] Address [address] [place] [address] Phone Care Team Providers Care Jaw Skinner Name Role Phone Maria Isabel Tarango APRN, SAUL Primary Care Provider + Stanley Thorpe MD Unavailable Allergies Active Allergy Reactions Criticality Noted Date Comments Cat Dander Other (see Comments) ,Hives,Shortness of Breath High 06/06/1979 Kiwi Extract Shortness of Breath High 05/26/2021 Latex Hives 05/26/2021 Medications ergocalciferol (VITAMIN D) 11881 UNIT Capsule TAKE 1 CAPSULE BY MOUTH [...] on file Legal Sex Female 12:09 PM BEVELLER OPERATOR Gender Identity Not on file Sexual Orientation Not on file Last Filed Vital Signs Vital Sign Reading Time Taken Comments Blood Pressure 128/84 07/13/2021 10:27 AM BEVELLER OPERATOR Pulse 85 07/13/2021 10:27 AM BEVELLER OPERATOR Temperature 36.2 C (97.1 F) 07/13/2021 10:27 AM BEVELLER OPERATOR Respiratory Rate 18 07/13/2021 10:2 7 AM BEVELLER OPERATOR Oxygen Saturation 97% 07/13/2021 10: 27 AM BEVELLER OPERATOR Inhaled Oxygen Concentration - - Weight 132.6 kg (292 lb 4.8 oz) 022 10:27 AM BEVELLER OPERATOR Height 175.3 cm (5' 9 ) 07/13/2021 10:2 7 AM BEVELLER OPERATOR Body Mass Index 43.17 07/13/2021 10:27 AM BEVELLER OPERATOR Plan of Treatment Health Maintenance Due Date [...] this topic Insurance [place]ICAID [place] Care Teams Jaw Skinner Relationship Specialty Start Date End Date Maria Isabel Tarango APRN, [employer] CONSULTANT [address] [place] [id number] PCP - General Family Medicine 06/16/21 Stanley Thorpe MD [address] [place] [phone] Consulting Physician Oncology 06/16/21
--- OUTSIDE RECORDS SUMMARY | 2024-08-19 07:44 | XMS_ITS | Clinical Summary ---
Author Organization [facility] Address [facility] [place] [address] Care Team Providers Care Fuller Brush Man Name Role Phone iBna Mehta SILVER RECOVERY OPERATOR Primary Care Provider [phone]- [phone] Allergies Active Allergy Reactions Criticality Noted Date [...] Recently Relevant to Health Maintenance Insurance MEDICAID Care Teams Fuller Brush Man Relationship Specialty Start Date End Date Bina Mehta, SILVER RECOVERY OPERATOR [address] [facility] [address] [place] [address] PCP - General NURSE PRACTITIONER 11/03/23
--- OUTSIDE RECORDS SUMMARY | 2024-08-19 07:44 | XMS_ITS | Encounter Summary ---
Author Organization [facility] Address [facility] [place] [address] Care Team Providers Care Doors Prefitter Name Role Phone Maria Isabel Tarango CELL OPERATION SUPERVISOR Primary Care Provider Bina Hurley CELL OPERATION SUPERVISOR Primary Care Provider [phone]- [phone] Encounter Details Date Type Department Care Team (Late st Contact Info) Description 08/20/2021 Hoard Message Enc [facility] Family Medicine [address] [address] Gilberto, [facility] Provider Surgical Clearance Social History Tobacco Use [...] Coronavirus/COVID-19? No / Unsure 07/29/2021 6:35 PM MANIFEST/ORDER ORGANIZER PRINT ORDERS documented as of this encounter Plan of Treatment Not on file documented as of this encounter Visit Diagnoses Not on filedocumented in this encounter Additional Health Concerns Assessment Noted Time PHQ-9 Depression Total Score: 21 021 2:00 PM MANIFEST/ORDER ORGANIZER PRINT ORDERS documented as of this encounter Care Teams Doors Prefitter Relationship Specialty Start Date End Date Maria Isabel Tarango, CELL OPERATION SUPERVISOR PCP - General NURSE PRACTITIONER 12/06/19 11/02/23 Bina Mehta, CELL OPERATION SUPERVISOR [address] [facility] [address] [place] [address] PCP - General NURSE PRACTITIONER 11/03/23 documented as of this encounter
--- NOTE | 2024-08-19 07:54 | PC.NURSE ---
Assumed care of pt. Pt reports no change in dizziness. Ambulated to bathroom with cane & x1 assist. Pt states dizziness gets worse when looking straight ahead.
--- NOTE | 2024-08-19 08:04 | ED_ITS ---
HPI - General Adult General Chief complaint: Syncope Stated complaint: vertigo Time Seen by Provider: 08/19/24 06:55 History of Present Illness HPI narrative: 48-year-old female presenting to the emergency department for evaluation for worsening vertigo that is been ongoing for the last week. Patient does have history of MS and does have baseline weakness bilateral hands and legs below her shins. Patient states she does have intermittent issues with vertigo. Patient states last Tuesday she was lying in bed rolled to her left and had onset of vertigo symptoms. Patient states the symptoms have persisted throughout the course of the week. Patient also does feel that she has had increased weakness on her left side and has been having some issues with gait stability. Patient follows up with Neurology at [facility]. Patient is scheduled to follow-up with a new neurologist on September 04. Related Data Home Medications ?Medication ?Instructions ?Recorded ?Confirmed ?Last Taken ?Type ferrous sulfate 325 mg (65 mg 325 mg PO BID 07/28/21 09/22/23 10/15/21 History iron) tablet (Iron (ferrous sulfate)) Allergies Allergy/AdvReac Type Severity Reaction Status Date / Time kiwi Allergy Severe Anaphylaxis Verified 05/25/24 09:26 latex Allergy Mild RASH Verified 05/25/24 09:26 cat dander Allergy Itching Verified 05/25/24 09:26 Review of Systems 2 Review of Systems: All systems reviewed & are unremarkable except as noted in HPI and below PMFSH Past Medical History Medical History BMI greater than 40 Degenerative joint disease of knee Left knee DJD Colon cancer screening Fibroids (normal spontaneous vaginal delivery) X2 Depression Osteoarthritis of right knee Multiple sclerosis Surgical History Surgical History Status post total abdominal hysterectomy And bilateral salpingectomy History of D&C Status post tubal ligation Open fracture of ulna ORIF 2019 H/O bilateral breast reduction surgery History of cholecystectomy Social History Social History Smoking status: Never smoker Alcohol intake: never Substance use: never Substance use type: does not use Living arrangements: with family Additional living arrangements comments: , 2 sons Occupation/Education: occupation 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 HEAD: normocephalic, atraumatic. EYES: PERRLA/EOMI, conjunctivae clear. NOSE: Normal no drainage EARS:TMS clear with good light reflex. THROAT: Pharynx clear, no exudate. NECK: Supple. No adenopathy, no masses. RESPIRATORY: Airway patent, respirations nonlabored. Clear to auscultation bilaterally, no rales, rhonchi, wheezing. CARDIOVASCULAR: Regular rate and rhythm without murmurs rubs or gallops. ABDOMINAL: Soft, nontender, nondistended, normal bowel sounds MUSCULOSKELETAL: Moves all extremities. Strength/ROM intact, No edema, No calf tenderness. NEURO: Alert. Cranial nerves II through XII intact. Grossly intact, leg weakness on the left, vertigo symptoms induced when looking up and to other side SKIN: Warm, dry. Normal Color Course Vital Signs Vital signs: Vital Signs Temperature 97.6 F 08/19/24 05:53 Pulse Rate 90 08/19/24 05:53 Respiratory Rate 16 08/19/24 05:53 Blood Pressure 151/84 H 08/19/24 05:53 Pulse Oximetry 100 08/19/24 05:53 Oxygen Delivery Room Air 08/19/24 05:53 Temperature 97.9 F 08/19/24 07:55 Pulse Rate 84 08/19/24 09:14 Respiratory Rate 20 08/19/24 09:14 Blood Pressure 154/81 H 08/19/24 09:14 Pulse Oximetry 99 08/19/24 09:14 Oxygen Delivery Room Air 08/19/24 06:29 Medical Decision Making [facility] Narrative Medical decision making narrative: 48-year-old female presented emergency department for evaluation for vertigo symptoms. Patient's symptoms are worsened with movement into improved with rest. Patient states her symptoms started acutely when she rolled over. Patient does complain of increased sinus drainage on the left. Patient does have MS at baseline and did feel that her symptoms were potentially worsened on the left. Patient is currently afebrile with a leukocytosis of 10.3, stable hemoglobin of 13.2. No acute abnormalities on her CMP urine was negative for . Head CT was negative for acute intracranial abnormality. Patient was treated with meclizine and did have significant improvement of her symptoms able ambulate baseline and had no worsening symptoms when turning her head and looking up. Patient will be provided meclizine for home. Patient was encouraged close follow-up with her neurologist. Differential Diagnosis Differential Diagnosis: Benign positional vertigo, central vertigo, MS, TIA, CVA Vital Signs Vital Signs: Vital Signs Temperature 97.6 F 08/19/24 05:53 Pulse Rate 90 08/19/24 05:53 Respiratory Rate 16 08/19/24 05:53 Blood Pressure 151/84 H 08/19/24 05:53 Pulse Oximetry 100 08/19/24 05:53 Oxygen Delivery Room Air 08/19/24 05:53 Temperature 97.9 F 08/19/24 07:55 Pulse Rate 84 08/19/24 09:14 Respiratory Rate 20 08/19/24 09:14 Blood Pressure 154/81 H 08/19/24 09:14 Pulse Oximetry 99 08/19/24 09:14 Oxygen Delivery Room Air 08/19/24 06:29 Lab Data Lab results reviewed: Yes I reviewed the patient's lab results. 08/19/24 06:24 08/19/24 06:24 Labs: Lab Results 08/19/24 08/19/24 Range/Units 06:24 08:12 WBC 10.3 H (4.5-10.0) K/mm3 RBC 3.92 L (4.2-5.4) M/mm3 Hgb 13.2 (12.0-15.0) g/dL Hct 39.9 (37.0-47.0) % MCV 101.8 H (80-100) fl MCH 33.7 (26-34) pg MCHC 33.1 (32-36) g/dl RDW 14.0 (11.5-14.5) % Plt Count 374 (150-375) k/mm3 MPV 8.5 (7.4-10.4) fl Immature Gran % (Auto) 0.5 (0-0.5) % Neut % (Auto) 64.4 (45.5-73.1) % Lymph % (Auto) 21.9 (18.3-44.2) % Isabel[place] % (Auto) 10.1 H (2.6-8.5) % Eos % (Auto) 2.7 (0-4.4) % Baso % (Auto) 0.4 (0.2-1.2) % Lymph # (Auto) 2.26 (0.9-3.2) K/mm3 [place] # (Auto) 1.0 H (0.1-0.6) K/mm3 Eos # (Auto) 0.3 (0-0.3) K/mm3 Baso # (Auto) 0.0 (0.0-0.1) K/mm3 Abs Immat Gran (auto) 0.05 H (0.00-0.031) K/mm3 Absolute Neuts (auto) 6.6 (1.3-6.7) K/mm3 Absolute Nucleated RBC 0.000 (0.0-0.012) K/mm3 Nucleated RBC % 0.0 (0.0-0.2) % Sodium 139 (137-145) mmol/L Potassium 4.1 (3.4-5.0) mmol/L Chloride 104 (98-107) mmol/L Carbon Dioxide 26 (22-30) mmol/L Anion Gap 9 (4-12) mmol/L BUN 17 (7-17) mg/dL Creatinine 0.72 (0.7-1.0) mg/dL Estim Creat Clear Calc 123 ml/min Estimated GFR > 60 (59 - ) Glucose 92 (65-110) mg/dL Calcium 9.1 (8.4-10.2) mg/dL Total Bilirubin 0.2 (0.2-1.3) mg/dL AST 29 (14-36) U/L ALT 28 (6-35) U/L Alkaline Phosphatase 66 (38-126) U/L Total Protein 8.0 (6.3-8.2) g/dL Albumin 4.2 (3.5-5.1) g/dL POC Urine HCG, Qual Negative (Negative) Imaging Data Radiologist's impression: Impressions Chest X-Ray 08/19/24 06:40 IMPRESSION: No acute cardiopulmonary pathology Head CT 08/19/24 07:40 IMPRESSION: No acute intracranial findings. Discharge Plan Discharge Clinical Impression: Benign paroxysmal positional vertigo Patient Disposition: Home, Self-Care Condition: Stable Instructions: Antibiotic Form, Vertigo (DC) Additional Instructions: Meclizine as needed for vertigo control. Have close follow-up with your primary care physician and with Neurology. If you have any worsening symptoms and please call or return to the emergency department. Patient Language: [place]ian Prescriptions: New meclizine 25 mg tablet 25 mg PO BID PRN (Reason: dizziness) 7 Days Qty: 14 0RF No Action meloxicam 7.5 mg tablet 7.5 mg PO DAILY Qty: 30 0RF ferrous sulfate [Iron (ferrous sulfate)] 325 mg (65 mg iron) Tablet 325 mg PO BID Follow-up/Referrals: Haja,DAVID Parekh [Primary Care Provider] -
[2024-08-19 08:16] LABS: BEDSIDEPREGUCG Negative (Negative)
--- NOTE | 2024-08-19 08:58 | PC.NURSE ---
Per EDP, hold valium d/t patient experiencing relief with PO meclizine.
== END 2024-08-19 09:16 | disposition home or self-care (01) ==
PROVIDERS: Student in an Organized Health Care Education/Training Program; Emergency Provider Emergency Medicine; PCP Physician Assistant
DX: H81.10 Benign paroxysmal vertigo, unspecified ear (principal); G35 Multiple sclerosis; M17.0 Bilateral primary osteoarthritis of knee; F32.A Depression, unspecified; Z90.710 Acquired absence of both cervix and uterus; Z90.79 Acquired absence of other genital organ(s); Z90.49 Acquired absence of other specified parts of digestive tract; Z79.1 Long term (current) use of non-steroidal anti-inflammatories (NSAID); I49.3 Ventricular premature depolarization; I45.9 Conduction disorder, unspecified
CPT/HCPCS: 36415; 70450; 71045; 80053; 81025; 85025; 93005; 99284; A9270